=== PATIENT | male | born 1940 | race Caucasian/White ===

== ENCOUNTER 2016-07-21 13:23 | Inpatient (IN) | payer MEDICARE, MEDICAID ==
[~2016-07-21] VITALS: Ht 182.9 cm; Wt 148.5 kg
[~2016-07-21 13:23] MED LIST: ACET325S8 PO; AMLO5TAB22 PO; ASCO500C PO; ASPI325T PO; AZEL0.05 NASAL; DEPA125C PO; FERR324T4 PO; FINA5TAB77 PO; FISH100020 PO; GALA12TA PO; LORA-392 PO; METO25 PO; MULTTAB35 PO; NAME5TAB2 PO; NUED20CA PO; SENN8.6T80 PO; SERO25TA PO; TAMS0.4C67 PO; VITA400D PO; ZYPR2.5T2 PO
[2016-07-21 13:29] VITALS: BP 136/65; PULSE 76; RESP 18; TEMP 98.5; O2SAT 94
[2016-07-21] MEDS ORDERED: VANCOMYCIN INJ 1,000 MG in SODIUM CHLOR 0.9% 250 ML INJ 250 ML IV ONE (13:45)
--- NOTE | 2016-07-21 13:52 | PD ---
HPI Chief Complaint: Skin Problem Time Seen by Provider: 13:31 Travel History International Travel<30 days: No Contact w/Intl Traveler<30days: No Traveled to known affect area: No History of Present Illness HPI This Is a 75-year-old male who comes from the prison with worsening cellulitis of his left lower extremity. The patient was on Rocephin and Bactrim at the prison. According to the nursing report the patient's left lower extremity has become more red and warm to the touch. He reportedly had a ultrasound of the lower extremity at the nursing facility however were trying to obtain records for the results. The patient has a history of dementia and is unable to give history. All of the information is obtained through records from the prison in through the EMS report. PFSH Past Medical History Alzheimer's Disease: Yes Anxiety: Yes Depression: Yes Cardiovascular Problems: Yes (CAD, HTN) Coronary Artery Disease: Yes Dementia: Yes Diminished Hearing: No Hypertension: Yes Triglycerides - High: Yes Past Surgical History Cardiac Surgery: Yes (PACER) Coronary Artery Bypass Graft: Yes Other Surgery: Yes (CARPAL TUNNEL RELEASE) Social History Alcohol Use: No Tobacco Use: No Substance Use: No (UNK) Allergies-Medications (Allergen,Severity, Reaction): Coded Allergies: No Known Allergies (Unverified , 07/31/15) Reported Meds & Prescriptions Reported Meds & Active Scripts Active Reported Seroquel (Quetiapine Fumarate) 50 Mg Tab 50 Mg PO DAILY Seroquel (Quetiapine Fumarate) 100 Mg Tab 100 Mg PO HS Senna S (Sennosides-Docusate Sodium) 8.6-50 Mg Tab 2 Tab PO BID Rivastigmine 3 Mg Cap 3 Mg PO BID Requip (Ropinirole HCl) 0.5 Mg Tab 0.5 Mg PO TID Ditropan (Oxybutynin Chloride) 5 Mg Tab 5 Mg PO DAILY Olanzapine 5 Mg Tab 5 Mg PO HS Nuedexta 20-10 mg (Dextromethorphan HBr-Quinidine) 1 Cap Cap 1 Cap PO Q12HR Normal Saline Flush (Sodium Chloride Flush) 0.9 % Inj 5 Ml IV FLUSH Q8HR Administer q-shift and pre/post abt tx Namenda (Memantine) 10 Mg Tab 10 Mg PO BID Multiple Vitamin/Minerals (Multiple Vitamins W/ Minerals) 1 Tab Tab 1 Tab PO DAILY Metoprolol Tartrate 25 Mg Tab 25 Mg PO BID Flomax (Tamsulosin HCl) 0.4 Mg Cap 0.4 Mg PO HS Fish Oil ([place]-3 Fatty Acids) 500 Mg Cap 1,000 Mg PO DAILY Finasteride 5 Mg Tab 5 Mg PO DAILY Do not crush. Ferrous Sulfate 325 Mg Tab 325 Mg PO BID Depakote Sprinkles (Divalproex Sodium) 125 mg Cap 500 Mg PO HS Depakote Sprinkles (Divalproex Sodium) 125 mg Cap 250 Mg PO BID Vitamin D-400 (Cholecalciferol) 400 Unit Tab 400 Units PO DAILY Ceftriaxone Inj (Ceftriaxone Sodium) 1 Gm Inj 1 Gm IV DAILY Bactrim DS (Sulfamethoxazole-Trimethoprim) 800-160 Mg Tab 1 Tab PO BID Azelastine Nasal [place] (Azelastine HCl) 0.1% [place] 2 [place] EACH NARE BID PRN Ativan (Lorazepam) 1 Mg Tab 1 Mg PO DAILY Ativan (Lorazepam) 0.5 Mg Tab 0.5 Mg PO DAILY IN THE PM Ativan (Lorazepam) 0.5 Mg Tab 0.5 Mg PO Q4H PRN Aspirin 325 Mg Tab 325 Mg PO DAILY Albuterol Neb (Albuterol Sulfate) 2.5 Mg/3 Ml Neb 2.5 Mg NEB Q6HR PRN Tylenol (Acetaminophen) 325 Mg Tab 650 Mg PO Q4H PRN Review of Systems ROS Limitations: Altered Mental Status (history of dementia) Except as stated in HPI: all other systems reviewed are Neg (all information is obtained through records from the prison as well as the EMS crew) General / Constitutional: No: Fever, Chills Cardiovascular: No: Chest Pain or Discomfort, Palpitations Respiratory: Positive: Cough, No: Shortness of Breath Gastrointestinal: No: Nausea, Vomiting, Abdominal Pain Musculoskeletal: Positive: Edema (and redness of the left lower extremity), No : Pain (denies) Physical Exam Narrative GENERAL: Totally gentleman in no acute respiratory distress. SKIN: Focused skin assessment warm/dry. HEAD: Atraumatic. Normocephalic. EYES: Pupils equal and round. No scleral icterus. No injection or drainage. ENT: No nasal bleeding or discharge. Mucous membranes pink and moist. NECK: Trachea midline. No JVD. Supple. CARDIOVASCULAR: Regular rate and rhythm. No murmur appreciated. RESPIRATORY: No accessory muscle use. Clear to auscultation. Breath sounds equal bilaterally. Decreased respiratory effort. GASTROINTESTINAL: Abdomen soft, non-tender, nondistended. Hepatic and splenic margins not palpable. MUSCULOSKELETAL: Bilateral lower extremity edema, left worse than right. There is cellulitis extending from the dorsum of the foot all the way up to the left groin. NEUROLOGICAL: Awake and alert. No obvious cranial nerve deficits. Motor grossly within normal limits. Normal speech. Data Data Last Documented VS Vital Signs Date Time Temp Pulse Resp B/P Pulse Ox O2 Delivery O2 Flow Rate FiO2 07/21/16 15:06 79 18 156/76 94 07/21/16 13:29 98.5 Orders Basic Metabolic Panel (Bmp) (07/21/16 13:33) Complete Blood Count With Diff (07/21/16 13:33) Blood Culture (07/21/16 13:33) Iv Access Insert/Monitor (07/21/16 13:33) Vancomycin Inj (Vancomycin Inj) (07/21/16 13:45) Sodium Chlor 0.9% 1000 Ml Inj (Ns 1000 M (07/21/16 14:45) Chest, Single Ap (07/21/16 15:19) Admit Order (Ed Use Only) (07/21/16 15:29) Labs Laboratory Tests Test 07/21/16 07/21/16 13:45 13:56 Sodium Level 121 MEQ/L Potassium Level 4.5 MEQ/L Chloride Level 85 MEQ/L Carbon Dioxide Level 24.4 MEQ/L Anion Gap 12 MEQ/L Blood Urea Nitrogen 11 MG/DL Creatinine 0.78 MG/DL Estimat Glomerular Filtration 98 ML/MIN Rate Random Glucose 123 MG/DL Calcium Level 8.1 MG/DL White Blood Count 12.7 TH/MM3 Red Blood Count 3.89 MIL/MM3 Hemoglobin 11.5 GM/DL Hematocrit 35.1 % Mean Corpuscular Volume 90.2 FL Mean Corpuscular Hemoglobin 29.6 PG Mean Corpuscular Hemoglobin 32.9 % Concent Red Cell Distribution Width 14.3 % Platelet Count 150 TH/MM3 Mean Platelet Volume 8.0 FL Neutrophils (%) (Auto) 81.9 % Lymphocytes (%) (Auto) 5.9 % Monocytes (%) (Auto) 6.0 % Eosinophils (%) (Auto) 5.6 % Basophils (%) (Auto) 0.6 % Neutrophils # (Auto) 10.4 TH/MM3 Lymphocytes # (Auto) 0.7 TH/MM3 Monocytes # (Auto) 0.8 TH/MM3 Eosinophils # (Auto) 0.7 TH/MM3 Basophils # (Auto) 0.1 TH/MM3 CBC Comment AUTO DIFF Differential Total Cells 100 Counted Neutrophils % (Manual) 51 % Band Neutrophils % 20 % Lymphocytes % 7 % Monocytes % 7 % Eosinophils % 6 % Neutrophils # (Manual) 10.2 TH/MM3 Metamyelocytes 6 % Myelocytes 3 % Differential Comment FINAL DIFF MANUAL Platelet Estimate NORMAL Platelet Morphology Comment NORMAL Red Cell Morphology Comment NORMAL MDM Medical Decision Making Medical Screen Exam Complete: Yes Emergency Medical Condition: Yes Differential Diagnosis Worsening cellulitis with failed outpatient treatment versus DVT versus rash Narrative Course 75-year-old male with a history of dementia, prison resident, who presents here with worsening cellulitis of left lower extremity. The patient had a reported negative ultrasound of the left lower extremity today. The patient is white count 12.7. He is also noted to have a sodium of 121. He is also he failed outpatient treatment. Blood cultures are pending. He's been started on sodium chloride, at 125 cc per hour. He's also been given a dose of 1 g of IVD vancomycin. The case was discussed with Dr. Gamal Chu, nurse transition [facility], who is gracious enough to admit the patient his service. He will be a full admit given his failed outpatient treatment, and hyponatremia. Diagnosis Primary Impression: Left leg cellulitis Additional Impressions: failed outpatient antibiotics Hyponatremia Alzheimer's dementia Admitting Information Admitting Physician Requests: Admit Estiven Schmitz MD July 21, 2016 13:52 Estiven Schmitz MD July 21, 2016 13:52
[2016-07-21 14:08] LABS: AUTOMATED NEUTROPHIL # 10.4 TH/MM3 (1.8-7.7); BASOPHIL # 0.1 TH/MM3 (0-0.2); BASOPHIL % 0.6 % (0.0-2.0); EOSINOPHIL # 0.7 TH/MM3 (0-0.4); EOSINOPHIL % 5.6 % (0.0-4.0); HEMATOCRIT 35.1 % (39.0-51.0); LYMPH % 5.9 % (9.0-44.0); LYMPHOCYTE # 0.7 TH/MM3 (1.0-4.8); MEAN CELL VOLUME 90.2 FL (80.0-100.0); MEAN CORPUSCULAR HEMOGLOBIN 29.6 PG (27.0-34.0); MEAN CORPUSCULAR HGB CONC 32.9 % (32.0-36.0); NEUT % 81.9 % (16.0-70.0); PLATELET COUNT 150 TH/MM3 (150-450); RED BLOOD COUNT 3.89 MIL/MM3 (4.50-5.90); RED CELL DISTRIBUTION WIDTH 14.3 % (11.6-17.2); WHITE BLOOD COUNT 12.7 TH/MM3 (4.0-11.0)
[2016-07-21 14:10] LABS: HEMO FLAGS AUTO DIFF
[2016-07-21] MEDS ORDERED: OLAN5TAB PO (14:26)
[2016-07-21] MEDS ORDERED: NAME10TA PO (14:26)
[2016-07-21] MEDS ORDERED: METO25TA3 PO (14:26)
[2016-07-21] MEDS ORDERED: FISH500C PO (14:26)
[2016-07-21] MEDS ORDERED: SERO50TA PO (14:26)
[2016-07-21] MEDS ORDERED: SENN8.6T8 PO (14:26)
[2016-07-21] MEDS ORDERED: FERR325T PO (14:26)
[2016-07-21] MEDS ORDERED: ALBU0.08 NEB (14:26)
[2016-07-21] MEDS ORDERED: CEFT1INJ5 IV (14:26)
[2016-07-21] MEDS ORDERED: NUED20CA PO (14:26)
[2016-07-21] MEDS ORDERED: DIVA125C PO ×2 (14:26)
[2016-07-21] MEDS ORDERED: BACT800T5 PO (14:26)
[2016-07-21] MEDS ORDERED: OXYB5TAB10 PO (14:26)
[2016-07-21] MEDS ORDERED: TAMS5CAP PO (14:26)
[2016-07-21] MEDS ORDERED: TYLE325T PO (14:26)
[2016-07-21] MEDS ORDERED: 0.92SYRI2 IV FLUSH (14:26)
[2016-07-21] MEDS ORDERED: LORA-392 PO ×2 (14:26)
[2016-07-21] MEDS ORDERED: AZEL1SPR2 EACH NARE (14:26)
[2016-07-21] MEDS ORDERED: ROPI.5 PO (14:26)
[2016-07-21] MEDS ORDERED: SERO100T PO (14:26)
[2016-07-21] MEDS ORDERED: ASPI325T PO (14:26)
[2016-07-21] MEDS ORDERED: MULT1TAB39 PO (14:26)
[2016-07-21] MEDS ORDERED: RIVA3CAP PO (14:26)
[2016-07-21] MEDS ORDERED: LORA-474 PO (14:26)
[2016-07-21] MEDS ORDERED: FINA5TAB2 PO (14:26)
[2016-07-21] MEDS ORDERED: VITATAB56 PO (14:26)
[2016-07-21 14:27] LABS: BICARBONATE 24.4 MEQ/L (21.0-32.0); POTASSIUM 4.5 MEQ/L (3.5-5.1)
[2016-07-21 14:42] LABS: BANDS 20 % (0-6); EOSINOPHILS 6 % (0-4); METAMYELOCYTES 6 % (0-1); MYELOCYTES 3 % (0-0); NEUTROPHIL # MANUAL DIFF 10.2 TH/MM3 (1.8-7.7); POLYS (SEG NEUTROPHILS) 51 % (16-70); WBC DIFF SAMPLE 100
[2016-07-21 14:43] LABS: PLATELET ESTIMATE SMEAR NORMAL (NORMAL); PLATELET MORPHOLOGY NORMAL (NORMAL); SCAN/DIFF FINAL DIFF MANUAL
[2016-07-21] MEDS: SODIUM CHLOR 0.9% 1000 ML INJ 1,000 ML IV SCH (15:05)
[2016-07-21 15:06] VITALS: BP 156/76; PULSE 79; RESP 18; O2SAT 94
[2016-07-21] MEDS ORDERED: Vancomycin Consult Pharmacy 1 EA OTHER SCH ×2 (15:45→16:00)
[2016-07-21] MEDS ORDERED: ONDANSETRON HCL 4 MG/2 ML VIAL IVP PRN (15:45)
[2016-07-21] MEDS ORDERED: ACETAMINOPHEN 325 MG TAB PO PRN (15:45)
[2016-07-21] MEDS ORDERED: NALOXONE HCL 0.4 MG/ML AMP IV PRN (15:45)
[2016-07-21] MEDS ORDERED: MAGNESIUM HYDROXIDE SUSP 30 ML CUP PO PRN (15:45)
--- NOTE | 2016-07-21 16:01 | RADRPT ---
EXAM DATE/TIME: 07/21/2016 15:27 [facility] COMPARISON: No previous studies available for comparison. INDICATIONS : Cough and congestion since Monday. MEDICAL HISTORY : Hypertension. Coronary artery disease. SURGICAL HISTORY : CABG. Pacemaker. ENCOUNTER: Initial ACUITY: 4 - 6 days PAIN SCORE: 0/10 LOCATION: Bilateral chest FINDINGS: A single view of the chest demonstrates the lungs to be symmetrically aerated without evidence of mas s, infiltrate or effusion. The cardiomediastinal contours are unremarkable. Osseous structures are intact. Numerous intact sternal wires. Left subclavian bipolar pacer CONCLUSION: Normal examination. Cody Walter MD on July 21, 2016 at 16:00 Board Certified Radiologist. This report was verified electronically.
[2016-07-21] MEDS: ENOXAPARIN SODIUM 40 MG/0.4 ML SYRINGE SQ SCH (16:25)
[2016-07-21] MEDS: PIPERACIL-TAZO 3.375 GM PREMIX 50 ML IV SCH (16:25)
[2016-07-21] MEDS ORDERED: LORazepam 0.5 MG TAB PO PRN (17:15)
--- NOTE | 2016-07-21 17:22 | HHI.HP ---
[facility] Service [place] [facility] Primary Care Physician Anil Mancilla MD Admission Diagnosis Left lower extremity cellulitis failed outpatient treatment, hyponat Diagnoses: (1) Left leg cellulitis Diagnosis: Principal (2) Alzheimer's dementia (3) Hyponatremia (4) Coronary artery disease (5) Hypertension (6) Anxiety and depression Chief Complaint: Cellulitis Travel History International Travel<30 Days: No Contact w/Intl Traveler <30 Da: No Traveled to Known Affected Are: No History of Present Illness Vanesa is a 75-year-old male who was sent to the emergency department from the long-term facility for evaluation of worsening left lower extremity cellulitis over the past few days. He had been placed on Rocephin and Bactrim at the SNF, but there have been no improvement. He has a small wound on the anterior left lower leg with no bleeding or drainage. He has had increasing erythema and swelling of the left leg over the past 5 days. He has dementia and is unable to provide significant history. Further information is gathered from review of electronic medical record, review of the SNF paperwork, discussion with ER physician, and discussion with family at bedside. Review of Systems Constitutional: DENIES: Fever, Chills, Night Sweats Eyes: DENIES: Blurred vision, Vision loss Ears, nose, mouth, throat: DENIES: Hearing loss Respiratory: COMPLAINS OF: Cough, DENIES: Wheezing, Sputum production, Shortness of breath Cardiovascular: DENIES: Chest pain, Palpitations, Dyspnea on Exertion, Lower Extremity Edema Gastrointestinal: DENIES: Abdominal pain, Constipation, Diarrhea, Nausea, Vomiting Genitourinary: DENIES: Urinary frequency, Urinary incontinence, Urgency, Hematuria, Dysuria, Nocturia Musculoskeletal: DENIES: Joint pain, Muscle aches Integumentary: COMPLAINS OF: Rash, DENIES: Pruritus Hematologic/lymphatic: DENIES: Bruising Neurologic: DENIES: Headache Past Family Social History Past Medical History Coronary artery disease Hypertension Dementia Anxiety/depression Lipidemia Past Surgical History Pacemaker placement CABG Carpal tunnel release Reported Medications Seroquel (Quetiapine Fumarate) 50 Mg Tab 50 Mg PO DAILY Seroquel (Quetiapine Fumarate) 100 Mg Tab 100 Mg PO HS Senna S (Sennosides-Docusate Sodium) 8.6-50 Mg Tab 2 Tab PO BID Rivastigmine 3 Mg Cap 3 Mg PO BID Requip (Ropinirole HCl) 0.5 Mg Tab 0.5 Mg PO TID Ditropan (Oxybutynin Chloride) 5 Mg Tab 5 Mg PO DAILY Olanzapine 5 Mg Tab 5 Mg PO HS Nuedexta 20-10 mg (Dextromethorphan HBr-Quinidine) 1 Cap Cap 1 Cap PO Q12HR Normal Saline Flush (Sodium Chloride Flush) 0.9 % Inj 5 Ml IV FLUSH Q8HR Administer q-shift and pre/post abt tx Namenda (Memantine) 10 Mg Tab 10 Mg PO BID Multiple Vitamin/Minerals (Multiple Vitamins W/ Minerals) 1 Tab Tab 1 Tab PO DAILY Metoprolol Tartrate 25 Mg Tab 25 Mg PO BID Flomax (Tamsulosin HCl) 0.4 Mg Cap 0.4 Mg PO HS Fish Oil ([place]-3 Fatty Acids) 500 Mg Cap 1,000 Mg PO DAILY Finasteride 5 Mg Tab 5 Mg PO DAILY Do not crush. Ferrous Sulfate 325 Mg Tab 325 Mg PO BID Depakote Sprinkles (Divalproex Sodium) 125 mg Cap 500 Mg PO HS Depakote Sprinkles (Divalproex Sodium) 125 mg Cap 250 Mg PO BID Vitamin D-400 (Cholecalciferol) 400 Unit Tab 400 Units PO DAILY Ceftriaxone Inj (Ceftriaxone Sodium) 1 Gm Inj 1 Gm IV DAILY Bactrim DS (Sulfamethoxazole-Trimethoprim) 800-160 Mg Tab 1 Tab PO BID Azelastine Nasal [place] (Azelastine HCl) 0.1% [place] 2 [place] EACH NARE BID PRN Ativan (Lorazepam) 1 Mg Tab 1 Mg PO DAILY Ativan (Lorazepam) 0.5 Mg Tab 0.5 Mg PO DAILY IN THE PM Ativan (Lorazepam) 0.5 Mg Tab 0.5 Mg PO Q4H PRN Aspirin 325 Mg Tab 325 Mg PO DAILY Albuterol Neb (Albuterol Sulfate) 2.5 Mg/3 Ml Neb 2.5 Mg NEB Q6HR PRN Tylenol (Acetaminophen) 325 Mg Tab 650 Mg PO Q4H PRN Allergies: Coded Allergies: No Known Allergies (Unverified , 07/31/15) Family History Denies Social History Denies alcohol or tobacco abuse. Physical Exam Vital Signs Vital Signs Date Time Temp Pulse Resp B/P Pulse Ox O2 Delivery O2 Flow Rate FiO2 07/21/16 15:06 79 18 156/76 94 07/21/16 13:29 98.5 76 18 136/65 94 Physical Exam GENERAL: Elderly male] in no acute distress. HEENT: Normocephalic, atraumatic. Pupils equal, round and reactive. Extraocular movements intact. No scleral icterus. No injection or drainage. Oropharynx is clear. Mucous membranes are moist. CARDIOVASCULAR: Regular rate and rhythm without murmurs, gallops, or rubs. RESPIRATORY: Clear to auscultation. No wheezes, rales, or rhonchi. Breathing is non-labored. GASTROINTESTINAL: Abdomen soft, non-tender, nondistended. EXTREMITIES: 2+ left lower extremity edema. No calf tenderness. There is significant erythema involving the entire left lower leg extending up to the groin medially and laterally. There is sparing of the skin overlying the knee and the distal thigh. There is a 1 cm scabbed lesion on the anterior lower left leg. There is no evidence of drainage or bleeding. PSYCH: Alert, confused. Laboratory Laboratory Tests Test 07/21/16 07/21/16 13:45 13:56 Sodium Level 121 Potassium Level 4.5 Chloride Level 85 Carbon Dioxide Level 24.4 Anion Gap 12 Blood Urea Nitrogen 11 Creatinine 0.78 Estimat Glomerular Filtration 98 Rate Random Glucose 123 Calcium Level 8.1 White Blood Count 12.7 Red Blood Count 3.89 Hemoglobin 11.5 Hematocrit 35.1 Mean Corpuscular Volume 90.2 Mean Corpuscular Hemoglobin 29.6 Mean Corpuscular Hemoglobin 32.9 Concent Red Cell Distribution Width 14.3 Platelet Count 150 Mean Platelet Volume 8.0 Neutrophils (%) (Auto) 81.9 Lymphocytes (%) (Auto) 5.9 Monocytes (%) (Auto) 6.0 Eosinophils (%) (Auto) 5.6 Basophils (%) (Auto) 0.6 Neutrophils # (Auto) 10.4 Lymphocytes # (Auto) 0.7 Monocytes # (Auto) 0.8 Eosinophils # (Auto) 0.7 Basophils # (Auto) 0.1 CBC Comment AUTO DIFF Differential Total Cells 100 Counted Neutrophils % (Manual) 51 Band Neutrophils % 20 Lymphocytes % 7 Monocytes % 7 Eosinophils % 6 Neutrophils # (Manual) 10.2 Metamyelocytes 6 Myelocytes 3 Differential Comment FINAL DIFF MANUAL Platelet Estimate NORMAL Platelet Morphology Comment NORMAL Red Cell Morphology Comment NORMAL Date/Time Procedure Status Source Growth 07/21/16 13:50 Aerobic Blood Culture Received Blood Peripheral Pending 07/21/16 13:50 Anaerobic Blood Culture Received Blood Peripheral Pending Result Diagram: 07/21/16 1356 07/21/16 1345 Imaging Last Impressions Chest X-Ray 07/21/16 1519 Signed Impressions: Service Date/Time: July 15:27 - CONCLUSION: Normal examination. Cody Walter MD Assessment and Plan Assessment and Plan 1. Cellulitis, left lower extremity: Failed outpatient therapy. Patient had been treated with Rocephin and Bactrim at the SNF area and he has had worsening of the cellulitis in the past few days despite antibiotics. Start vancomycin and Zosyn. There is no drainage available for culture. Check ultrasound of the left lower extremity due to the amount of swelling. 2. Also has dementia: Continue home medications. Patient is confused. 3. Hypertension: Monitor blood pressure. 4. Coronary artery disease: Currently asymptomatic. 5. Hyponatremia: Continue IV fluids. Monitor labs. 6. DVT prophylaxis: Lovenox. Code Status DO NOT RESUSCITATE Gamal Chu MD July 21, 2016 17:22
[2016-07-21] MEDS: LORazepam 0.5 MG TAB PO SCH (17:59)
[2016-07-21 18:00] VITALS: BP 190/89; PULSE 89; RESP 22; O2SAT 97
[2016-07-21] MEDS ORDERED: SODIUM CHLORIDE 0.9% FLUSH 10 ML FLUSH IV FLUSH PRN (18:00)
--- NOTE | 2016-07-21 18:32 | RADRPT ---
EXAM DATE/TIME: 07/21/2016 18:06 [facility] COMPARISON: No previous studies available for comparison. INDICATIONS : Left leg swelling. MEDICAL HISTORY : Dementia. Alzheimer's. CAD. HTN. Hyperlipidemia. Depression. Anxiety. Anticoagulant therapy, Aspi rin 325mg. SURGICAL HISTORY : Pacemaker. CABG Carpel tunnel release. ENCOUNTER: Initial ACUITY: 4 - 6 days PAIN SCORE: 0/10 LOCATION: Left leg. TECHNIQUE: Venous ultrasound of the leg was performed from the inguinal ligament to the proximal calf. Real-valencia e, color Doppler and spectral tracing, compression and augmentation techniques were used. FINDINGS: There is normal compressibility of the deep venous system from the inguinal region to the proximal ca lf. No echogenic clot is seen in the lumen of the common femoral, femoral, popliteal, and posterior tibial veins. There is a normal response of the venous system to proximal and distal augmentation an d respiration. Minimal inguinal adenopathy is evident. CONCLUSION: Negative of DVT. Ganesh Dale MD FACR on July 21, 2016 at 18:31 Board Certified Radiologist. This report was verified electronically.
[2016-07-21 19:30] VITALS: BP 143/71; PULSE 108; RESP 20; TEMP 95; O2SAT 95
[2016-07-21] MEDS ORDERED: NUEDEXTA PO SCH (21:00)
[2016-07-21] MEDS: TAMSULOSIN HCL 0.4 MG CAP PO SCH (22:07)
[2016-07-21] MEDS: MEMANTINE HCL 10 MG TAB PO SCH (22:07)
[2016-07-21] MEDS: FERROUS SULFATE 325 MG (65 MG ELEMENTAL IRON) TAB PO SCH (22:07)
[2016-07-21] MEDS: DOCUSATE SODIUM 50 MG/SENNA 8.6 MG TAB PO SCH (22:08)
[2016-07-21] MEDS: METOPROLOL TARTRATE 25 MG TAB PO SCH (22:08)
[2016-07-21] MEDS: QUEtiapine FUMARATE 100 MG TAB PO SCH (22:08)
[2016-07-21] MEDS: VANCOMYCIN INJ 1,500 MG in SODIUM CHLORID 0.9% 500 ML INJ 500 ML IV SCH (22:09)
[2016-07-21] MEDS: DIVALPROEX SODIUM SPRINKLES 125 MG CAP PO SCH ×2 (22:10)
[2016-07-21] MEDS: RIVASTIGMINE TARTRATE 3 MG PO SCH (22:18)
[2016-07-21] MEDS: RESP: ALBUTEROL 2.5 MG/IPRATROPIUM 0.5 MG NEB (PRN) NEB (22:41)
[2016-07-21] MEDS: OLANZapine 5 MG TAB PO SCH (22:58)
[2016-07-22] VITALS (12 sets, daily range): BP systolic 133–154; BP diastolic 63–86; PULSE 84–114; RESP 17–20; TEMP 97–99.4; O2SAT 93–99
[2016-07-22] MEDS: SODIUM CHLOR 0.9% 1000 ML INJ 1,000 ML IV SCH ×2 (00:45→21:23)
--- NOTE | 2016-07-22 01:33 | RADRPT ---
EXAM DATE/TIME: 07/22/2016 01:10 [facility] COMPARISON: No previous studies available for comparison. INDICATIONS : Congestion. MEDICAL HISTORY : Hypertension. Coronary artery disease. SURGICAL HISTORY : CABG. Pacemaker. ENCOUNTER: Subsequent ACUITY: 2 days PAIN SCORE: Non-responsive. LOCATION: chest FINDINGS: Pacer leads overlying right atrium and right ventricle. Median sternotomy. Minimal basilar atelectasi s. CONCLUSION: 1. Minimal basilar atelectasis. No consolidation or effusion. Mild scoliosis. Artemio Ordonez MD on July 22, 2016 at 1:30 Board Certified Radiologist. This report was verified electronically.
[2016-07-22 03:38] LABS: BASOPHIL % 0.3 % (0.0-2.0); EOSINOPHIL # 0.8 TH/MM3 (0-0.4); EOSINOPHIL % 5.4 % (0.0-4.0); HEMATOCRIT 35.5 % (39.0-51.0); LYMPH % 5.4 % (9.0-44.0); LYMPHOCYTE # 0.8 TH/MM3 (1.0-4.8); MEAN CELL VOLUME 89.4 FL (80.0-100.0); MEAN CORPUSCULAR HEMOGLOBIN 30.2 PG (27.0-34.0); MEAN CORPUSCULAR HGB CONC 33.7 % (32.0-36.0); MONO % 4.7 % (0.0-8.0); NEUT % 84.2 % (16.0-70.0); PLATELET COUNT 171 TH/MM3 (150-450); RED BLOOD COUNT 3.97 MIL/MM3 (4.50-5.90); RED CELL DISTRIBUTION WIDTH 14.2 % (11.6-17.2); WHITE BLOOD COUNT 14.2 TH/MM3 (4.0-11.0)
[2016-07-22 03:39] LABS: HEMO FLAGS AUTO DIFF
[2016-07-22 03:52] LABS: ALT (GPT) 25 U/L (12-78); ANION GAP 9 MEQ/L (5-15); AST (GOT) 28 U/L (15-37); BICARBONATE 27.1 MEQ/L (21.0-32.0); BLOOD UREA NITROGEN 10 MG/DL (7-18); CHLORIDE 89 MEQ/L (98-107); GLOMERULAR FILTRATION RATE 95 ML/MIN (>89); POTASSIUM 4.7 MEQ/L (3.5-5.1); SODIUM (NA) 125 MEQ/L (136-145)
[2016-07-22 03:55] LABS: ALKALINE PHOSPHATASE 88 U/L (45-117); TOTAL BILIRUBIN ADULT 0.4 MG/DL (0.2-1.0)
[2016-07-22] MEDS: RESP: ALBUTEROL 2.5 MG/IPRATROPIUM 0.5 MG NEB (SCH) NEB ×4 (04:13→22:10)
[2016-07-22 04:29] LABS: BANDS 15 % (0-6); EOSINOPHILS 3 % (0-4); METAMYELOCYTES 9 % (0-1); NEUTROPHIL # MANUAL DIFF 12.2 TH/MM3 (1.8-7.7); POLYS (SEG NEUTROPHILS) 62 % (16-70); WBC DIFF SAMPLE 100
[2016-07-22 04:30] LABS: PLATELET ESTIMATE SMEAR NORMAL (NORMAL); PLATELET MORPHOLOGY NORMAL (NORMAL); SCAN/DIFF FINAL DIFF MANUAL
[2016-07-22] MEDS: RIVASTIGMINE TARTRATE 3 MG PO SCH ×2 (08:50→21:28)
[2016-07-22] MEDS: ASPIRIN 325 MG TAB PO SCH (08:51)
[2016-07-22] MEDS: DOCUSATE SODIUM 50 MG/SENNA 8.6 MG TAB PO SCH ×2 (08:51→21:28)
[2016-07-22] MEDS: METOPROLOL TARTRATE 25 MG TAB PO SCH ×2 (08:51→21:28)
[2016-07-22] MEDS: FERROUS SULFATE 325 MG (65 MG ELEMENTAL IRON) TAB PO SCH ×2 (08:51→21:00)
[2016-07-22] MEDS: PIPERACIL-TAZO 3.375 GM PREMIX 50 ML IV SCH ×3 (08:51→15:51)
[2016-07-22] MEDS: OXYBUTYNIN CHLORIDE 5 MG TAB PO SCH (08:52)
[2016-07-22] MEDS: MULTIVITAMINS/MINERALS THERAPEUTIC TAB PO SCH (08:52)
[2016-07-22] MEDS: LORazepam 1 MG TAB PO SCH (08:52)
[2016-07-22] MEDS: QUEtiapine FUMARATE 25 MG TAB PO SCH (08:52)
[2016-07-22] MEDS: DIVALPROEX SODIUM SPRINKLES 125 MG CAP PO SCH ×3 (08:52→21:36)
[2016-07-22] MEDS: MEMANTINE HCL 10 MG TAB PO SCH ×2 (08:52→21:29)
[2016-07-22] MEDS: FINASTERIDE 5 MG TAB PO SCH (08:52)
[2016-07-22] MEDS ORDERED: NON-FORMULARY DRUG (Omega-3 Fatty Acids (Fish Oil) 1,000 MG) PO SCH (09:00)
[2016-07-22] MEDS: VANCOMYCIN INJ 1,500 MG in SODIUM CHLORID 0.9% 500 ML INJ 500 ML IV SCH ×2 (10:17→21:29)
[2016-07-22] MEDS: CHOLECALCIFEROL (VIT D3) 400 UNIT TAB PO SCH (10:17)
--- NOTE | 2016-07-22 10:45 | HHI.PR ---
Subjective Remarks Follow-up cellulitis, dementia. The patient has been doing well this morning according to his family at bedside. Has been eating a small amount of breakfast. Denies chest pain, dyspnea. Objective Vitals Vital Signs Date Time Temp Pulse Resp B/P Pulse Ox O2 Delivery O2 Flow Rate FiO2 07/22/16 09:48 84 07/22/16 09:44 93 21 07/22/16 08:00 97.3 97 18 133/65 94 07/22/16 04:20 92 07/22/16 04:14 94 21 07/22/16 04:00 97.3 90 18 141/73 96 07/22/16 00:00 97.0 114 18 139/86 98 07/21/16 19:30 95.0 108 20 143/71 95 07/21/16 18:00 89 22 190/89 97 07/21/16 15:06 79 18 156/76 94 07/21/16 13:29 98.5 76 18 136/65 94 I/O 07/21/16 07/21/16 07/21/16 07/22/16 07/22/16 07/22/16 07:00 15:00 23:00 07:00 15:00 23:00 Output Total 4000 ml Balance -4000 ml Output Urine Total 4000 ml # Bowel Movements 3 Result Diagram: 07/22/16 0323 07/22/16 0323 Imaging Last Impressions Chest X-Ray 07/22/16 0000 Signed Impressions: Service Date/Time: Friday, July 22, 2016 01:10 - CONCLUSION: 1. Minimal basilar atelectasis. No consolidation or effusion. Mild scoliosis. Artemio Ordonez MD Lower Extremity Ultrasound 07/21/16 0000 Signed Impressions: Service Date/Time: July 18:06 - CONCLUSION: Negative of DVT. Ganesh Dale MD FACR Objective Remarks General: Elderly male in no acute distress. Heart: Regular rate and rhythm. No murmur. Lungs: Clear to auscultation bilaterally. No wheezes, rales, or rhonchi. Breathing is nonlabored. Abdomen: Soft, nontender, nondistended. Extremities: Left lower extremity with significant edema, induration, and erythema extending from the mid foot to the upper thigh/groin. There is slightly less swelling than yesterday. No areas of fluctuance are noted. Psych: Alert, confused. Procedures None Urinary Catheter: Yes Assessment to: Continue [place] insert reason: Obstruction/Retention Vascular Central Line Catheter: No A/P Problem List: (1) Left leg cellulitis ICD Code: L03.116 Status: Acute (2) Alzheimer's dementia ICD Code: G30.9 Status: Acute (3) Hyponatremia ICD Code: E87.1 Status: Acute (4) Coronary artery disease ICD Code: I25.10 Status: Acute (5) Hypertension ICD Code: I10 Status: Acute (6) Anxiety and depression ICD Code: F41.9 Status: Acute Assessment and Plan 1. Cellulitis, left lower extremity: Failed outpatient therapy. Patient had been treated with Rocephin and Bactrim at the SNF area and he has had worsening of the cellulitis in the past few days despite antibiotics. Continue vancomycin and Zosyn. There is no drainage available for culture. Ultrasound shows no evidence of DVT. Slight improvement in swelling today. Still with significant erythema and induration. 2. Dementia: Continue home medications. Patient is confused. 3. Hypertension: Monitor blood pressure. 4. Coronary artery disease: Currently asymptomatic. 5. Hyponatremia: Continue IV fluids. Monitor labs. 6. DVT prophylaxis: Lovenox. 7. CODE STATUS: DO NOT RESUSCITATE. Gamal Chu MD July 22, 2016 10:45
[2016-07-22] MEDS: RESP: ALBUTEROL 2.5 MG/IPRATROPIUM 0.5 MG NEB (PRN) NEB (13:08)
[2016-07-22] MEDS: ENOXAPARIN SODIUM 40 MG/0.4 ML SYRINGE SQ SCH (15:51)
[2016-07-22] MEDS: LORazepam 0.5 MG TAB PO SCH ×2 (17:39→21:28)
[2016-07-22] MEDS: TAMSULOSIN HCL 0.4 MG CAP PO SCH (21:27)
[2016-07-22] MEDS: QUEtiapine FUMARATE 100 MG TAB PO SCH (21:28)
[2016-07-22] MEDS: OLANZapine 5 MG TAB PO SCH (21:28)
[2016-07-23] VITALS (9 sets, daily range): BP systolic 116–150; BP diastolic 57–87; PULSE 79–107; RESP 18–22; TEMP 97–99; O2SAT 93–99
[2016-07-23] MEDS: PIPERACIL-TAZO 3.375 GM PREMIX 50 ML IV SCH ×4 (00:18→23:41)
[2016-07-23] MEDS: RESP: ALBUTEROL 2.5 MG/IPRATROPIUM 0.5 MG NEB (SCH) NEB ×4 (03:25→21:59)
[2016-07-23] MEDS: SODIUM CHLOR 0.9% 1000 ML INJ 1,000 ML IV SCH (05:58)
[2016-07-23] MEDS: QUEtiapine FUMARATE 25 MG TAB PO SCH (08:31)
[2016-07-23] MEDS: OXYBUTYNIN CHLORIDE 5 MG TAB PO SCH (08:31)
[2016-07-23] MEDS: RIVASTIGMINE TARTRATE 3 MG PO SCH ×2 (08:31→20:48)
[2016-07-23] MEDS: FINASTERIDE 5 MG TAB PO SCH (08:31)
[2016-07-23] MEDS: LORazepam 1 MG TAB PO SCH (08:31)
[2016-07-23] MEDS: DOCUSATE SODIUM 50 MG/SENNA 8.6 MG TAB PO SCH ×2 (08:31→20:48)
[2016-07-23] MEDS: MEMANTINE HCL 10 MG TAB PO SCH ×2 (08:31→20:48)
[2016-07-23] MEDS: DIVALPROEX SODIUM SPRINKLES 125 MG CAP PO SCH ×3 (08:32→20:48)
[2016-07-23] MEDS: METOPROLOL TARTRATE 25 MG TAB PO SCH ×2 (08:32→20:48)
[2016-07-23] MEDS: FERROUS SULFATE 325 MG (65 MG ELEMENTAL IRON) TAB PO SCH ×2 (08:32→20:48)
[2016-07-23] MEDS: CHOLECALCIFEROL (VIT D3) 400 UNIT TAB PO SCH (08:32)
[2016-07-23] MEDS: MULTIVITAMINS/MINERALS THERAPEUTIC TAB PO SCH (08:32)
[2016-07-23] MEDS: ASPIRIN 325 MG TAB PO SCH (08:32)
--- NOTE | 2016-07-23 09:38 | RADRPT ---
EXAM DATE/TIME: 07/23/2016 09:11 [facility] COMPARISON: CHEST SINGLE AP, July 22, 2016, 1:10. INDICATIONS : Shortness of breath and cough. MEDICAL HISTORY : Hypertension. Coronary artery disease. SURGICAL HISTORY : CABG. Pacemaker. ENCOUNTER: Subsequent ACUITY: 3 days PAIN SCORE: Non-responsive. LOCATION: chest FINDINGS: Cardiac pacemaker and median sternotomy wires again seen. Minimal subsegmental atelectasis at the lef t lung base. The lungs are otherwise clear. Cardiomediastinal silhouette within normal limits. No jose dence of pleural effusion or pneumothorax. CONCLUSION: No acute cardiopulmonary disease identified. Benjy Arredondo MD on July 23, 2016 at 9:36 Board Certified Radiologist. This report was verified electronically.
[2016-07-23] MEDS ORDERED: PHARMACY ORDERED LAB ONE (09:45)
--- NOTE | 2016-07-23 09:54 | HHI.PR ---
Subjective Remarks I was called by the nurse regarding worsening respiratory distress. Patient was short of breath and felt that he could not clear mucous. Nurse did suctioning and the patient vomited dark material. No apparent blood. Upon my arrival to the room, the patient states that he is not short of breath. He denies chest pain. He is completing a nebulizer treatment. Objective Vitals Vital Signs Date Time Temp Pulse Resp B/P Pulse Ox O2 Delivery O2 Flow Rate FiO2 07/23/16 09:03 93 Nasal Cannula 2.00 07/23/16 08:40 Room Air 07/23/16 08:00 97.3 99 20 130/66 94 07/23/16 04:00 97.0 107 22 150/82 99 07/23/16 03:34 97 Aerosol Mask 07/23/16 00:00 97.2 80 20 135/74 98 07/22/16 22:12 98 Nasal Cannula 21 07/22/16 20:00 98.0 97 20 140/63 96 07/22/16 19:48 107 07/22/16 16:00 99.4 95 18 142/69 99 07/22/16 12:00 97.8 94 17 154/78 94 I/O 07/22/16 07/22/16 07/22/16 07/23/16 07/23/16 07/23/16 07:00 15:00 23:00 07:00 15:00 23:00 Intake Total 280 ml 2618 ml Output Total 4000 ml 850 ml 800 ml Balance -4000 ml 280 ml 1768 ml -800 ml Intake Oral 280 ml IV Total 2618 ml Output Urine Total 4000 ml 850 ml 800 ml # Bowel Movements 3 Result Diagram: 07/22/16 0323 07/22/16 0323 Imaging Last Impressions Chest X-Ray 07/23/16 0000 Signed Impressions: Service Date/Time: Saturday, July 23, 2016 09:11 - CONCLUSION: No acute cardiopulmonary disease identified. Benjy Arredondo MD Lower Extremity Ultrasound 07/21/16 0000 Signed Impressions: Service Date/Time: July 18:06 - CONCLUSION: Negative of DVT. Ganesh Dale MD FACR Objective Remarks General: Elderly male in no acute distress. Heart: Regular rate and rhythm. No murmur. Lungs: Clear to auscultation bilaterally. No wheezes, rales, or rhonchi. Breathing is nonlabored. Abdomen: Soft, nontender, nondistended. Extremities: Left lower extremity with edema, induration, and erythema extending from the mid foot to the upper thigh/groin. Improved compared to yesterday. No areas of fluctuance are noted. Psych: Alert, confused. Procedures None Urinary Catheter: Yes Assessment to: Continue Albright insert reason: Obstruction/Retention Vascular Central Line Catheter: No A/P Problem List: (1) Left leg cellulitis ICD Code: L03.116 Status: Acute (2) Alzheimer's dementia ICD Code: G30.9 Status: Acute (3) Hyponatremia ICD Code: E87.1 Status: Acute (4) Coronary artery disease ICD Code: I25.10 Status: Acute (5) Hypertension ICD Code: I10 Status: Acute (6) Anxiety and depression ICD Code: F41.9 Status: Acute (7) Dyspnea ICD Code: R06.00 Status: Acute Assessment and Plan 1. Cellulitis, left lower extremity: Failed outpatient therapy. Patient had been treated with Rocephin and Bactrim at the SNF area and he has had worsening of the cellulitis in the past few days despite antibiotics. Continue vancomycin and Zosyn. There is no drainage available for culture. Ultrasound shows no evidence of DVT. Improving. 2. Dementia: Continue home medications. Patient is confused. 3. Hypertension: Monitor blood pressure. 4. Coronary artery disease: Currently asymptomatic. 5. Hyponatremia: Continue IV fluids. Monitor labs. 6. DVT prophylaxis: Lovenox. 7. Dyspnea: CXR is negative. Concern for possible aspiration. Continue bronchodilators, antibiotics. 8. CODE STATUS: DO NOT RESUSCITATE. Gamal Chu MD July 23, 2016 09:54
[2016-07-23 10:18] LABS: BASOPHIL # 0.1 TH/MM3 (0-0.2); BASOPHIL % 0.4 % (0.0-2.0); EOSINOPHIL # 0.3 TH/MM3 (0-0.4); EOSINOPHIL % 1.3 % (0.0-4.0); HEMATOCRIT 37.7 % (39.0-51.0); HEMO FLAGS DIFF FINAL; LYMPH % 4.8 % (9.0-44.0); LYMPHOCYTE # 0.9 TH/MM3 (1.0-4.8); MEAN CORPUSCULAR HEMOGLOBIN 29.7 PG (27.0-34.0); MEAN CORPUSCULAR HGB CONC 32.6 % (32.0-36.0); MONO % 4.3 % (0.0-8.0); NEUT % 89.2 % (16.0-70.0); PLATELET COUNT 269 TH/MM3 (150-450); RED BLOOD COUNT 4.14 MIL/MM3 (4.50-5.90); RED CELL DISTRIBUTION WIDTH 14.5 % (11.6-17.2); WHITE BLOOD COUNT 19.1 TH/MM3 (4.0-11.0)
[2016-07-23 10:36] LABS: BICARBONATE 21.1 MEQ/L (21.0-32.0)
[2016-07-23] MEDS: VANCOMYCIN INJ 1,500 MG in SODIUM CHLORID 0.9% 500 ML INJ 500 ML IV SCH ×2 (11:19→21:48)
[2016-07-23] MEDS ORDERED: SODIUM CHLOR 0.9% 1000 ML INJ 1,000 ML IV SCH (13:15)
[2016-07-23] MEDS: ENOXAPARIN SODIUM 40 MG/0.4 ML SYRINGE SQ SCH (15:12)
[2016-07-23 17:23] LABS: BLOOD GAS BASE EXCESS -1.3 mmol/L (-2-2); BLOOD GAS CARBOXYHEMOGLOBIN 1.2 % (0-4); BLOOD GAS HCO3 22 mmol/L (22-26); BLOOD GAS METHEMOGLOBIN 0.8 % (0-2); BLOOD GAS O2 HGB SATURATION 96 % (90-100); BLOOD GAS OXYGEN CONTENT 15.3 Vol % (12.0-20.0); BLOOD GAS PCO2 33 mmHg (38-42); BLOOD GAS PO2 100 mmHg (61-120); BLOOD GAS TOTAL HGB 11.3 G/DL (12.0-16.0); CRITICAL VALUE NO; OXYGEN DEVICE NASAL CANNULA; TEMP CORR TO 98.6
[2016-07-23 17:24] LABS: DRAW SITE RT RADIAL; LITER FLOW 2 L/M; NUMBER OF ARTERIAL PUNCTURES 1; STAT YES; ULNAR PULSE PRESENT
[2016-07-23 17:52] LABS: BLOOD, URINE MOD (NEG); GLUCOSE,URINE NEG (NEG); KETONE, URINE 10 mg/dL (NEG); NITRITE,URINE NEG (NEG); SQUAMOUS EPITHELIAL CELL URINE <1 /hpf (0-5); URINE COLOR YELLOW (YELLW/STRAW)
[2016-07-23 17:53] LABS: COMMENT (UR) CULTURE INDICATED; CULTURE IF INDICATED CULTURE INDICATED
[2016-07-23] MEDS: TAMSULOSIN HCL 0.4 MG CAP PO SCH (20:48)
[2016-07-23] MEDS: QUEtiapine FUMARATE 100 MG TAB PO SCH (20:48)
[2016-07-23] MEDS: OLANZapine 5 MG TAB PO SCH (20:49)
[2016-07-24] VITALS (7 sets, daily range): BP systolic 102–143; BP diastolic 53–76; PULSE 76–98; RESP 18–20; TEMP 96.6–97.7; O2SAT 95–100
[2016-07-24] MEDS: RESP: ALBUTEROL 2.5 MG/IPRATROPIUM 0.5 MG NEB (SCH) NEB ×4 (04:35→22:23)
[2016-07-24] MEDS: PIPERACIL-TAZO 3.375 GM PREMIX 50 ML IV SCH (08:00)
[2016-07-24 08:12] LABS: AUTOMATED NEUTROPHIL # 14.8 TH/MM3 (1.8-7.7); BASOPHIL % 0.3 % (0.0-2.0); EOSINOPHIL # 0.5 TH/MM3 (0-0.4); LYMPH % 7.4 % (9.0-44.0); LYMPHOCYTE # 1.3 TH/MM3 (1.0-4.8); MEAN CELL VOLUME 89.8 FL (80.0-100.0); MEAN CORPUSCULAR HEMOGLOBIN 30.2 PG (27.0-34.0); MEAN CORPUSCULAR HGB CONC 33.6 % (32.0-36.0); MONO % 4.8 % (0.0-8.0); NEUT % 84.5 % (16.0-70.0); PLATELET COUNT 203 TH/MM3 (150-450); RED BLOOD COUNT 3.23 MIL/MM3 (4.50-5.90); RED CELL DISTRIBUTION WIDTH 14.4 % (11.6-17.2); WHITE BLOOD COUNT 17.5 TH/MM3 (4.0-11.0)
[2016-07-24 08:32] LABS: BICARBONATE 23.1 MEQ/L (21.0-32.0); HEMO FLAGS AUTO DIFF; POTASSIUM 4.3 MEQ/L (3.5-5.1)
[2016-07-24] MEDS: CHOLECALCIFEROL (VIT D3) 400 UNIT TAB PO SCH (09:00)
[2016-07-24] MEDS: DIVALPROEX SODIUM SPRINKLES 125 MG CAP PO SCH ×3 (09:00→21:26)
[2016-07-24] MEDS: MEMANTINE HCL 10 MG TAB PO SCH ×2 (09:00→21:26)
[2016-07-24] MEDS: FINASTERIDE 5 MG TAB PO SCH (09:00)
[2016-07-24] MEDS: RIVASTIGMINE TARTRATE 3 MG PO SCH ×2 (09:00→21:27)
[2016-07-24] MEDS: ASPIRIN 325 MG TAB PO SCH (09:00)
[2016-07-24] MEDS: FERROUS SULFATE 325 MG (65 MG ELEMENTAL IRON) TAB PO SCH ×2 (09:00→21:26)
[2016-07-24] MEDS: METOPROLOL TARTRATE 25 MG TAB PO SCH ×2 (09:00→21:26)
[2016-07-24] MEDS: MULTIVITAMINS/MINERALS THERAPEUTIC TAB PO SCH (09:00)
[2016-07-24] MEDS: OXYBUTYNIN CHLORIDE 5 MG TAB PO SCH (09:00)
[2016-07-24] MEDS: QUEtiapine FUMARATE 25 MG TAB PO SCH (09:00)
[2016-07-24] MEDS: LORazepam 1 MG TAB PO SCH (09:00)
[2016-07-24] MEDS: DOCUSATE SODIUM 50 MG/SENNA 8.6 MG TAB PO SCH ×2 (09:00→21:27)
[2016-07-24 10:51] LABS: BANDS 21 % (0-6); BASOPHILS 1 % (0-2); EOSINOPHILS 3 % (0-4); MYELOCYTES 1 % (0-0); NEUTROPHIL # MANUAL DIFF 13.8 TH/MM3 (1.8-7.7); POLYS (SEG NEUTROPHILS) 57 % (16-70); WBC DIFF SAMPLE 100
[2016-07-24 10:52] LABS: PLATELET ESTIMATE SMEAR NORMAL (NORMAL); PLATELET MORPHOLOGY NORMAL (NORMAL); SCAN/DIFF FINAL DIFF MANUAL
--- NOTE | 2016-07-24 11:36 | HHI.PR ---
Subjective Remarks Follow-up sepsis, cellulitis. Patient is feeling better today. Still having difficulty clearing phlegm. Feels that his asthma is bothering him. No chest pain. No more vomiting. Objective Vitals Vital Signs Date Time Temp Pulse Resp B/P Pulse Ox O2 Delivery O2 Flow Rate FiO2 07/24/16 09:51 96 Nasal Cannula 2.00 07/24/16 07:50 97.7 77 116/56 95 07/24/16 04:00 97.0 80 18 143/76 100 07/24/16 00:00 97.0 80 20 134/75 97 07/23/16 22:00 94 Nasal Cannula 2.00 07/23/16 20:00 Nasal Cannula 2.00 07/23/16 20:00 99.0 91 18 116/57 97 07/23/16 20:00 93 07/23/16 16:42 97.8 79 18 127/68 96 07/23/16 16:00 97.8 79 19 127/68 96 07/23/16 12:00 97.6 105 18 135/87 97 I/O 07/23/16 07/23/16 07/23/16 07/24/16 07/24/16 07/24/16 07:00 15:00 23:00 07:00 15:00 23:00 Intake Total 794 ml Output Total 800 ml 1400 ml Balance -800 ml 794 ml -1400 ml IV Total 794 ml Output Urine Total 800 ml 1400 ml Result Diagram: 07/24/16 0747 07/24/16 0747 Imaging Last Impressions Chest X-Ray 07/23/16 0000 Signed Impressions: Service Date/Time: Saturday, July 23, 2016 09:11 - CONCLUSION: No acute cardiopulmonary disease identified. Benjy Arredondo MD Lower Extremity Ultrasound 07/21/16 0000 Signed Impressions: Service Date/Time: July 18:06 - CONCLUSION: Negative of DVT. Ganesh Dale MD FACR Objective Remarks General: Elderly male in no acute distress. Heart: Regular rate and rhythm. No murmur. Lungs: Mild scattered wheeze. Breathing is nonlabored. Abdomen: Soft, nontender, nondistended. Extremities: Left lower extremity with edema, induration, and erythema extending from the mid foot to the upper thigh/groin. Erythema and swelling are improving. No areas of fluctuance are noted. Psych: Alert, confused. Procedures None Urinary Catheter: Yes Assessment to: Continue (Replace rapp today) Rapp insert reason: Obstruction/Retention Vascular Central Line Catheter: No A/P Problem List: (1) Left leg cellulitis ICD Code: L03.116 Status: Acute (2) Alzheimer's dementia ICD Code: G30.9 Status: Acute (3) Hyponatremia ICD Code: E87.1 Status: Acute (4) Coronary artery disease ICD Code: I25.10 Status: Acute (5) Hypertension ICD Code: I10 Status: Acute (6) Anxiety and depression ICD Code: F41.9 Status: Acute (7) Dyspnea ICD Code: R06.00 Status: Acute Assessment and Plan 1. Cellulitis, left lower extremity: Failed outpatient therapy. Patient had been treated with Rocephin and Bactrim at the SNF area and he has had worsening of the cellulitis in the past few days despite antibiotics. Continue vancomycin and Zosyn. There is no drainage available for culture. Ultrasound shows no evidence of DVT. Improving. 2. Dementia: Continue home medications. Patient is confused. 3. Hypertension: Monitor blood pressure. 4. Coronary artery disease: Currently asymptomatic. 5. Hyponatremia: Continue IV fluids. Monitor labs. 6. DVT prophylaxis: Lovenox. 7. Dyspnea: CXR is negative. Concern for possible aspiration. Continue bronchodilators, antibiotics. 8. Sepsis: Secondary to cellulitis, UTI. Continue antibiotics. Infectious disease consult pending. Blood cultures are negative so far. Urine culture is pending. 9. UTI: Continue antibiotics. Culture is pending. 10. CODE STATUS: DO NOT RESUSCITATE. Gamal Chu MD July 24, 2016 11:36
[2016-07-24] MEDS ORDERED: RESP: ALBUTEROL 2.5 MG/3 ML NEB (PRN) NEB (11:45)
[2016-07-24] MEDS: VANCOMYCIN INJ 1,500 MG in SODIUM CHLORID 0.9% 500 ML INJ 500 ML IV SCH ×2 (12:33→21:27)
[2016-07-24] MEDS: LORazepam 0.5 MG TAB PO SCH ×2 (13:16→17:20)
--- NOTE | 2016-07-24 13:28 | PD.CONS ---
History of Present Illness Service Infectious disease Consult Requested By Dr Chu Reason for Consult Evaluate patient with LLE cellulitis Primary Care Physician Anil Mancilla MD Diagnoses: History of Present Illness Patient seen and examined. Records reviewed. I got the history from the patient's . Patient is a 75-year-old male, who was diagnosed to have dementia about 2 years ago, and according to the he had very prominent aggressive behavior. He has been tried on multiple assisted living facilities, but this was complicated by multiple falls. He had sustained a cervical spine fracture that required surgery. Patient ended up in a half-way facility, and again due to his aggressive behavior from his dementia, he has been tried in different nursing facilities. Patient currently has been in his current nursing facility since last year. He has had difficulty ambulating, and since January 2016, patient apparently has been in a wheelchair. Recently probably in the last week patient has been bedbound, and has not really been able to transfer from bed to the wheelchair. According to the about 5 days ago patient was diagnosed to have cellulitis of the left lower extremity. He was apparently started on Rocephin and Bactrim, and he was not improving, so the patient was admitted to the hospital for further evaluation and treatment. There's been no mention that he was having any fever or chills or sweats. Patient sustained some kind of wound on his left retana, probably from a fall in the NH, prior to development of the cellulitis. Patient also has been having problem with cough and the gives a history of asthma as one of the problem of this patient. According to the , his LLE is normally larger compared to the RLE , but he has not had any problem with redness. Albright placed in CT when patient started not being able to transfer to his wheelchair. Since admission, he has not had any fever. His white count has been elevated, and has been worsening. Patient also has been having more problem with coughing , and he's had 3 chest x-rays done which have all shown no acute cardiopulmonary process. Patient has had swallowing evaluation, and there was no evidence of aspiration, but there was some difficulty in following due to his cognitive functions. Patient has been getting IV Vanco and Zosyn, and has been showing improvement. Infectious disease consultation has been requested to evaluate the patient. Review of Systems ROS Limitations: Clinical Condition, Altered Mental Status Past Family Social History Allergies: Coded Allergies: No Known Allergies (Unverified , 07/31/15) Past Medical History Coronary artery disease Hypertension Dementia Anxiety/depression Hyperlipidemia Neuropathy Frequent falls Past Surgical History Pacemaker placement CABG Carpal tunnel release C spine fracture ? Active Ordered Medications Tylenol Albuterol Aspirin Cholecalciferol Depakote Lovenox Ferrous sulfate Proscar Ativan MOM Namenda Lopressor MVI Zyprexa Zofran Ditropan Zosyn Seroquel Exelon Requip Rachel-Colace Flomax IV vancomycin Social History [facility] at least a year or so No smoking No alcohol abuse No illicit drugs Physical Exam Vital Signs Vital Signs Date Time Temp Pulse Resp B/P Pulse Ox O2 Delivery O2 Flow Rate FiO2 07/24/16 09:51 96 Nasal Cannula 2.00 07/24/16 07:50 97.7 77 116/56 95 07/24/16 04:00 97.0 80 18 143/76 100 07/24/16 00:00 97.0 80 20 134/75 97 07/23/16 22:00 94 Nasal Cannula 2.00 07/23/16 20:00 Nasal Cannula 2.00 07/23/16 20:00 99.0 91 18 116/57 97 07/23/16 20:00 93 07/23/16 16:42 97.8 79 18 127/68 96 07/23/16 16:00 97.8 79 19 127/68 96 Physical Exam GENERAL: Patient is an obese, well-developed CM, keeps eyes closed, follows simple commands intermittently, not in respiratory distress. SKIN: Warm and dry. No generalized rash, no ecchymoses and no evidence of embolic lesions. HEAD: Atraumatic. Normocephalic. No temporal wasting, or tenderness. EYES: [place] conjunctiva. No petechia or hemorrhage. Pupils equal, round and reactive to light. No scleral icterus. No injection or drainage. EARS, NOSE AND THROAT: Nose without bleeding or purulent nasal discharge. No sinus tenderness. Mucous membranes pink and moist. No oral lesions noted. No exudate. No oral thrush. NECK: Trachea midline. Supple and not tender, no meningeal signs CARDIOVASCULAR: Regular rate and rhythm. No murmurs, rubs or gallops heard. Pacer ok RESPIRATORY: Clear to auscultation. Breath sounds equal bilaterally. No rales , wheezing or rhonchi. Decreased BS at bases. ABDOMEN: Soft, non-tender, nondistended. Bowel sounds present and normoactive. No guarding. No rebound. No organomegaly. EXTREMITIES: LLE larger compared to RLE. Has edema. Has erythema from ankle from ankle to thigh, with a pea sized scab on anterior retana, with no evidence of infection. No pain in ROM of L ankle, or L knee. No clubbing, cyanosis. Has good ROM on passive movement. No calf tenderness. Well perfused and warm. NEUROLOGICAL: Follows simple commands. PSYCHIATRIC: Unable to assess : Albright in place, urine looks clear LINE: No evidence of infection Laboratory Laboratory Tests Test 07/23/16 07/23/16 07/23/16 07/24/16 17:11 17:25 18:50 07:47 Blood Gas Puncture Site RT RADIAL Blood Gas Patient Temperature 98.6 Blood Gas HCO3 22 Blood Gas Base Excess -1.3 Blood Gas Oxygen Saturation 96 Arterial Blood pH 7.44 Arterial Blood Partial 33 Pressure CO2 Arterial Blood Partial 100 Pressure O2 Arterial Blood Oxygen Content 15.3 Arterial Blood 1.2 Carboxyhemoglobin Arterial Blood Methemoglobin 0.8 Blood Gas Hemoglobin 11.3 Oxygen Delivery Device NASAL CANNULA Blood Gas Liter Flow 2 Urine Color YELLOW Urine Turbidity CLEAR Urine pH 6.0 Urine Specific [place] 1.029 Urine Protein 30 Urine Glucose (UA) NEG Urine Ketones 10 Urine Occult Blood MOD Urine Nitrite NEG Urine Bilirubin NEG Urine Urobilinogen LESS THAN 2.0 Urine Leukocyte Esterase MOD Urine RBC 135 Urine WBC 26 Urine Squamous Epithelial <1 Cells Microscopic Urinalysis Comment CULTURE INDICATED Lactic Acid Level 1.2 White Blood Count 17.5 Red Blood Count 3.23 Hemoglobin 9.8 Hematocrit 29.0 Mean Corpuscular Volume 89.8 Mean Corpuscular Hemoglobin 30.2 Mean Corpuscular Hemoglobin 33.6 Concent Red Cell Distribution Width 14.4 Platelet Count 203 Mean Platelet Volume 6.9 Neutrophils (%) (Auto) 84.5 Lymphocytes (%) (Auto) 7.4 Monocytes (%) (Auto) 4.8 Eosinophils (%) (Auto) 3.0 Basophils (%) (Auto) 0.3 Neutrophils # (Auto) 14.8 Lymphocytes # (Auto) 1.3 Monocytes # (Auto) 0.8 Eosinophils # (Auto) 0.5 Basophils # (Auto) 0.0 CBC Comment AUTO DIFF Differential Total Cells 100 Counted Neutrophils % (Manual) 57 Band Neutrophils % 21 Lymphocytes % 11 Monocytes % 6 Eosinophils % 3 Basophils % 1 Neutrophils # (Manual) 13.8 Myelocytes 1 Differential Comment FINAL DIFF MANUAL Platelet Estimate NORMAL Platelet Morphology Comment NORMAL Sodium Level 129 Potassium Level 4.3 Chloride Level 97 Carbon Dioxide Level 23.1 Anion Gap 9 Blood Urea Nitrogen 15 Creatinine 0.71 Estimat Glomerular Filtration 109 Rate Random Glucose 68 Calcium Level 8.0 Date/Time Procedure Status Source Growth 07/23/16 18:55 Aerobic Blood Culture - Preliminary Resulted Blood Peripheral NO GROWTH IN 1 DAY 07/23/16 18:55 Anaerobic Blood Culture - Preliminary Resulted Blood Peripheral NO GROWTH IN 1 DAY 07/23/16 17:25 Urine Culture Received Urine Other Pending Result Diagram: 07/24/16 0747 07/24/16 0747 Imaging RADIOLOGY STUDIES/FILMS REVIEWED Chest X-Ray 07/23/16 0000 Signed Impressions: Service Date/Time: Saturday, July 23, 2016 09:11 - CONCLUSION: No acute cardiopulmonary disease identified. Benjy Arredondo MD Chest X-Ray 07/22/16 0000 Signed Impressions: Service Date/Time: Friday, July 22, 2016 01:10 - CONCLUSION: 1. Minimal basilar atelectasis. No consolidation or effusion. Mild scoliosis. Artemio Ordonez MD Chest X-Ray 07/21/16 1519 Signed Impressions: Service Date/Time: July 15:27 - CONCLUSION: Normal examination. Cody Waletr MD Last Impressions Chest X-Ray 07/23/16 0000 Signed Impressions: Service Date/Time: Saturday, July 23, 2016 09:11 - CONCLUSION: No acute cardiopulmonary disease identified. Benjy Arredondo MD Lower Extremity Ultrasound 07/21/16 0000 Signed Impressions: Service Date/Time: July 18:06 - CONCLUSION: Negative of DVT. Ganesh Dale MD FACR Assessment and Plan Assessment and Plan IMPRESSION Cellulitis LLE, improving Leukocytosis, worsening - etiololgy? - CXR x 3 ok - UA with some pyuria Dementia RECOMMENDATION Change Zosyn to Levaquin Continue Vanco for now Add Diflucan Follow C/S Follow CBC Monitor progress I will make further recommendation once work-up completed I will follow along with you Thank you for this consultation Discussed Condition With Long discussion with regarding plan and recommendations Answered all her questions Harriett Smith MD July 24, 2016 13:28
[2016-07-24] MEDS: LEVOFLOXACIN 750 MG TAB PO SCH (17:20)
[2016-07-24] MEDS: ENOXAPARIN SODIUM 40 MG/0.4 ML SYRINGE SQ SCH (17:20)
[2016-07-24] MEDS: TAMSULOSIN HCL 0.4 MG CAP PO SCH (21:00)
[2016-07-24] MEDS: QUEtiapine FUMARATE 100 MG TAB PO SCH (21:27)
[2016-07-24] MEDS: OLANZapine 5 MG TAB PO SCH (21:27)
[2016-07-25] VITALS (8 sets, daily range): BP systolic 119–164; BP diastolic 56–71; PULSE 73–107; RESP 20–24; TEMP 97.3–98.8; O2SAT 93–97
[2016-07-25] MEDS: RESP: ALBUTEROL 2.5 MG/IPRATROPIUM 0.5 MG NEB (SCH) NEB ×4 (03:02→21:34)
[2016-07-25 08:46] LABS: BASOPHIL # 0.1 TH/MM3 (0-0.2); BASOPHIL % 0.4 % (0.0-2.0); EOSINOPHIL # 0.3 TH/MM3 (0-0.4); EOSINOPHIL % 1.6 % (0.0-4.0); LYMPH % 3.2 % (9.0-44.0); LYMPHOCYTE # 0.6 TH/MM3 (1.0-4.8); MEAN CELL VOLUME 91.9 FL (80.0-100.0); MEAN CORPUSCULAR HEMOGLOBIN 29.7 PG (27.0-34.0); MEAN CORPUSCULAR HGB CONC 32.3 % (32.0-36.0); MONO % 4.5 % (0.0-8.0); NEUT % 90.3 % (16.0-70.0); PLATELET COUNT 217 TH/MM3 (150-450); RED BLOOD COUNT 3.27 MIL/MM3 (4.50-5.90); RED CELL DISTRIBUTION WIDTH 14.5 % (11.6-17.2)
[2016-07-25 08:49] LABS: HEMO FLAGS AUTO DIFF
[2016-07-25 09:22] LABS: BANDS 17 % (0-6); EOSINOPHILS 2 % (0-4); METAMYELOCYTES 4 % (0-1); MYELOCYTES 4 % (0-0); NEUTROPHIL # MANUAL DIFF 18.8 TH/MM3 (1.8-7.7); POLYS (SEG NEUTROPHILS) 69 % (16-70); WBC DIFF SAMPLE 100
[2016-07-25 09:25] LABS: SCAN/DIFF FINAL DIFF MANUAL
[2016-07-25 09:31] LABS: BICARBONATE 22.7 MEQ/L (21.0-32.0); POTASSIUM 4.4 MEQ/L (3.5-5.1)
[2016-07-25] MEDS: LORazepam 1 MG TAB PO SCH (09:42)
[2016-07-25] MEDS: ASPIRIN 325 MG TAB PO SCH (09:42)
[2016-07-25] MEDS: DIVALPROEX SODIUM SPRINKLES 125 MG CAP PO SCH ×3 (09:42→21:00)
[2016-07-25] MEDS: OXYBUTYNIN CHLORIDE 5 MG TAB PO SCH (09:42)
[2016-07-25] MEDS: LEVOFLOXACIN 750 MG TAB PO SCH (09:43)
[2016-07-25] MEDS: FINASTERIDE 5 MG TAB PO SCH (09:43)
[2016-07-25] MEDS: MEMANTINE HCL 10 MG TAB PO SCH ×2 (09:43→21:00)
[2016-07-25] MEDS: CHOLECALCIFEROL (VIT D3) 400 UNIT TAB PO SCH (09:44)
[2016-07-25] MEDS: QUEtiapine FUMARATE 25 MG TAB PO SCH (09:44)
[2016-07-25] MEDS: MULTIVITAMINS/MINERALS THERAPEUTIC TAB PO SCH (09:45)
[2016-07-25] MEDS: DOCUSATE SODIUM 50 MG/SENNA 8.6 MG TAB PO SCH ×2 (09:45→21:00)
[2016-07-25] MEDS: FERROUS SULFATE 325 MG (65 MG ELEMENTAL IRON) TAB PO SCH ×2 (09:46→21:00)
[2016-07-25] MEDS: METOPROLOL TARTRATE 25 MG TAB PO SCH ×2 (09:46→21:00)
[2016-07-25] MEDS: RIVASTIGMINE TARTRATE 3 MG PO SCH ×2 (11:25→21:00)
[2016-07-25] MEDS: VANCOMYCIN INJ 1,500 MG in SODIUM CHLORID 0.9% 500 ML INJ 500 ML IV SCH ×2 (12:40→21:26)
--- NOTE | 2016-07-25 13:02 | HHI.IDPN ---
Subjective Subjective Remarks Notes reviewed Temps ok at bedside - waiting for swallowing eval Patient not having coughing episodes today On NPO Antibiotics Vancomycin Levaquin Lines PIV Past Medical History Reviewed Allergies: Coded Allergies: No Known Allergies (Unverified , 07/31/15) Objective . Vital Signs Date Time Temp Pulse Resp B/P Pulse Ox O2 Delivery O2 Flow Rate FiO2 07/25/16 11:20 98.8 99 20 119/71 97 07/25/16 07:35 97.7 94 20 164/56 97 07/25/16 04:00 98.1 107 20 120/56 93 07/25/16 00:00 98.5 83 20 145/62 96 07/24/16 22:24 Nasal Cannula 2.00 07/24/16 22:09 97 Nasal Cannula 2.00 07/24/16 20:00 96.6 96 18 114/54 96 07/24/16 15:15 96.7 76 102/53 97 07/24/16 07/24/16 07/25/16 14:59 22:59 06:59 Output Total 1950 ml 400 ml Balance -1950 ml -400 ml Output Urine Total 1950 ml 400 ml . Laboratory Tests Test 07/24/16 07/25/16 07:47 08:07 White Blood Count 17.5 TH/MM3 20.0 TH/MM3 Red Blood Count 3.23 MIL/MM3 3.27 MIL/MM3 Hemoglobin 9.8 GM/DL 9.7 GM/DL Hematocrit 29.0 % 30.0 % Mean Corpuscular Volume 89.8 FL 91.9 FL Mean Corpuscular Hemoglobin 30.2 PG 29.7 PG Mean Corpuscular Hemoglobin 33.6 % 32.3 % Concent Red Cell Distribution Width 14.4 % 14.5 % Platelet Count 203 TH/MM3 217 TH/MM3 Mean Platelet Volume 6.9 FL 6.8 FL Neutrophils (%) (Auto) 84.5 % 90.3 % Lymphocytes (%) (Auto) 7.4 % 3.2 % Monocytes (%) (Auto) 4.8 % 4.5 % Eosinophils (%) (Auto) 3.0 % 1.6 % Basophils (%) (Auto) 0.3 % 0.4 % Neutrophils # (Auto) 14.8 TH/MM3 18.0 TH/MM3 Lymphocytes # (Auto) 1.3 TH/MM3 0.6 TH/MM3 Monocytes # (Auto) 0.8 TH/MM3 0.9 TH/MM3 Eosinophils # (Auto) 0.5 TH/MM3 0.3 TH/MM3 Basophils # (Auto) 0.0 TH/MM3 0.1 TH/MM3 CBC Comment AUTO DIFF AUTO DIFF Differential Total Cells 100 100 Counted Neutrophils % (Manual) 57 % 69 % Band Neutrophils % 21 % 17 % Lymphocytes % 11 % 2 % Monocytes % 6 % 2 % Eosinophils % 3 % 2 % Basophils % 1 % Neutrophils # (Manual) 13.8 TH/MM3 18.8 TH/MM3 Myelocytes 1 % 4 % Differential Comment FINAL DIFF FINAL DIFF MANUAL MANUAL Platelet Estimate NORMAL Platelet Morphology Comment NORMAL Metamyelocytes 4 % Laboratory Tests Test 07/23/16 07/24/16 07/25/16 18:50 07:47 08:07 Lactic Acid Level 1.2 mmol/L Sodium Level 129 MEQ/L 132 MEQ/L Potassium Level 4.3 MEQ/L 4.4 MEQ/L Chloride Level 97 MEQ/L 98 MEQ/L Carbon Dioxide Level 23.1 MEQ/L 22.7 MEQ/L Anion Gap 9 MEQ/L 11 MEQ/L Blood Urea Nitrogen 15 MG/DL 10 MG/DL Creatinine 0.71 MG/DL 0.58 MG/DL Estimat Glomerular Filtration 109 ML/MIN 137 ML/MIN Rate Random Glucose 68 MG/DL 72 MG/DL Calcium Level 8.0 MG/DL 8.0 MG/DL Microbiology Date/Time Procedure Status Source Growth 07/23/16 17:25 Urine Culture - Final Complete Urine Other NO GROWTH IN 48 HOURS. 07/23/16 18:50 Aerobic Blood Culture - Preliminary Resulted Blood Peripheral NO GROWTH IN 2 DAYS 07/23/16 18:50 Anaerobic Blood Culture - Preliminary Resulted Blood Peripheral NO GROWTH IN 2 DAYS 07/23/16 18:55 Aerobic Blood Culture - Preliminary Resulted Blood Peripheral NO GROWTH IN 2 DAYS 07/23/16 18:55 Anaerobic Blood Culture - Preliminary Resulted Blood Peripheral NO GROWTH IN 2 DAYS Imaging Chest X-Ray 07/23/16 0000 Signed Impressions: Service Date/Time: Saturday, July 23, 2016 09:11 - CONCLUSION: No acute cardiopulmonary disease identified. Benjy Arredondo MD Lower Extremity Ultrasound 07/21/16 0000 Signed Impressions: Service Date/Time: July 18:06 - CONCLUSION: Negative of DVT. Ganesh Dale MD FACR Physical Exam GENERAL: keeps eyes closed, follows simple commands intermittently, not in respiratory distress. SKIN: Warm and dry. No generalized rash HEAD: Atraumatic. Normocephalic. No temporal wasting, or tenderness. EYES: [place] conjunctiva. No petechia or hemorrhage. Pupils equal, round and reactive to light. No scleral icterus. No injection or drainage. EARS, NOSE AND THROAT: Nose without bleeding or purulent nasal discharge. Mucous membranes pink and moist. No oral lesions noted. NECK: Trachea midline. Supple and not tender, no meningeal signs CARDIOVASCULAR: Regular rate and rhythm. No murmurs, rubs or gallops heard. Pacer ok RESPIRATORY: Clear to auscultation. Breath sounds equal bilaterally. No rales , wheezing or rhonchi. Decreased BS at bases. ABDOMEN: Soft, non-tender, nondistended. Bowel sounds present and normoactive. No guarding. No rebound. No organomegaly. EXTREMITIES: LLE larger compared to RLE. Has edema. Erytmea whol LLE markedly improved, mostly concentrated over his ankle. Skin dry with some desquamation Well perfused and warm. NEUROLOGICAL: Follows simple commands. PSYCHIATRIC: Unable to assess : Albright in place, urine looks clear LINE: No evidence of infection Assessment & Plan Remarks IMPRESSION Cellulitis LLE, much improved Leukocytosis, worsening - etiology? - CXR x 3 ok - UA with some pyuria - cellulitis better Dementia RECOMMENDATION Continue Levaquin Continue Vanco for now Continue Diflucan for now Follow C/S Follow CBC Monitor progress Spoke with - very concerned that patient has not eaten, and she is eagerly awaiting swallowing ata Zhang/Harriett Thorne RN, MD July 25, 2016 13:02
--- NOTE | 2016-07-25 16:12 | HHI.PR ---
Subjective Remarks Follow-up sepsis, hyponatremia. The patient states that he feels okay today. His is at bedside and states that he has been doing better. Cellulitis continues to improve. He ate soup and pudding for lunch without difficulty. Objective Vitals Vital Signs Date Time Temp Pulse Resp B/P Pulse Ox O2 Delivery O2 Flow Rate FiO2 07/25/16 11:20 98.8 99 20 119/71 97 07/25/16 07:35 97.7 94 20 164/56 97 07/25/16 04:00 98.1 107 20 120/56 93 07/25/16 00:00 98.5 83 20 145/62 96 07/24/16 22:24 Nasal Cannula 2.00 07/24/16 22:09 97 Nasal Cannula 2.00 07/24/16 20:00 96.6 96 18 114/54 96 I/O 07/24/16 07/24/16 07/24/16 07/25/16 07/25/16 07/25/16 07:00 15:00 23:00 07:00 15:00 23:00 Output Total 1400 ml 1950 ml 400 ml Balance -1400 ml -1950 ml -400 ml Output Urine Total 1400 ml 1950 ml 400 ml Result Diagram: 07/25/16 0807 07/25/16 0807 Imaging Last Impressions Chest X-Ray 07/23/16 0000 Signed Impressions: Service Date/Time: Saturday, July 23, 2016 09:11 - CONCLUSION: No acute cardiopulmonary disease identified. Benjy Arredondo MD Lower Extremity Ultrasound 07/21/16 0000 Signed Impressions: Service Date/Time: July 18:06 - CONCLUSION: Negative of DVT. Ganesh Dale MD FACR Objective Remarks General: Elderly male in no acute distress. Heart: Regular rate and rhythm. No murmur. Lungs: Mild scattered wheeze. Breathing is nonlabored. Abdomen: Soft, nontender, nondistended. Extremities: Left lower extremity with edema, induration, and erythema extending from the mid foot to the upper thigh/groin. Erythema and swelling are significantly improved. No areas of fluctuance are noted. Psych: Alert, confused. Procedures None Urinary Catheter: Yes Assessment to: Continue Albright insert reason: Obstruction/Retention Vascular Central Line Catheter: No A/P Problem List: (1) Left leg cellulitis ICD Code: L03.116 Status: Acute (2) Alzheimer's dementia ICD Code: G30.9 Status: Acute (3) Hyponatremia ICD Code: E87.1 Status: Acute (4) Coronary artery disease ICD Code: I25.10 Status: Acute (5) Hypertension ICD Code: I10 Status: Acute (6) Anxiety and depression ICD Code: F41.9 Status: Acute (7) Dyspnea ICD Code: R06.00 Status: Acute Assessment and Plan 1. Cellulitis, left lower extremity: Failed outpatient therapy. Patient had been treated with Rocephin and Bactrim at the SNF area and he has had worsening of the cellulitis in the past few days despite antibiotics. Continue vancomycin and Zosyn. There is no drainage available for culture. Ultrasound shows no evidence of DVT. Improving. 2. Dementia: Continue home medications. Patient is confused. 3. Hypertension: Monitor blood pressure. 4. Coronary artery disease: Currently asymptomatic. 5. Hyponatremia: Continue IV fluids. Monitor labs. 6. DVT prophylaxis: Lovenox. 7. Dyspnea: CXR is negative. Concern for possible aspiration. Continue bronchodilators, antibiotics. 8. Sepsis: Secondary to cellulitis, UTI. Continue antibiotics. Appreciate infectious disease recommendations. Blood cultures are negative so far. Urine culture is negative. 9. UTI: Continue antibiotics. Culture is pending. 10. Urinary retention: Albright catheter in place. Consult urology. 11. CODE STATUS: DO NOT RESUSCITATE. Gamal Chu MD July 25, 2016 16:12
[2016-07-25] MEDS: ENOXAPARIN SODIUM 40 MG/0.4 ML SYRINGE SQ SCH (17:09)
[2016-07-25] MEDS: LORazepam 0.5 MG TAB PO SCH (17:09)
[2016-07-25] MEDS: QUEtiapine FUMARATE 100 MG TAB PO SCH (21:00)
[2016-07-25] MEDS: OLANZapine 5 MG TAB PO SCH (21:00)
[2016-07-25] MEDS: TAMSULOSIN HCL 0.4 MG CAP PO SCH (21:00)
[2016-07-26] VITALS (10 sets, daily range): BP systolic 118–138; BP diastolic 59–63; PULSE 72–108; RESP 18–24; TEMP 96–99.2; O2SAT 93–99
[2016-07-26] MEDS: RESP: ALBUTEROL 2.5 MG/IPRATROPIUM 0.5 MG NEB (SCH) NEB (03:38)
--- NOTE | 2016-07-26 05:30 | MB ---
cc: KIKO CASTRO MD DATE OF CONSULTATION 07/25/2016 REASON FOR CONSULTATION Urinary retention and Albright catheter wear. CURRENT HISTORY This gentleman is a 75-year-old who was brought to the emergency room from a intermediate facility primarily for left lower extremity cellulitis that had been worsening over the previous few days. The gentleman is demented. He is unable to provide any history to me. There is nobody on the floor who is able to communicate with me at the moment. He has a Albright catheter in place. As I have read the notes, though I am not sure of this, it would appear that perhaps the Albright catheter had been in place and there was a note that it was to be changed, so again I am not certain how much urine output he had with the Albright catheter placement. ASSESSMENT AND PLAN In any event the Albright catheter appears to be in good position. The gentleman is clearly demented. According to the nurses he is incontinent of stool. I am not certain if he was in retention or not. We are happy to help with this gentleman on an outpatient basis once all of his medical issues are straightened around, but given that he has a clean catheter in place at the moment, nothing needs to be done about that at least for the next 30 days. We will see him in the hospital on a p.r.n. basis and if we can be helpful an outpatient basis, we are happy to have him seen in the clinic for further workup if it is indicated. MD LAQUITA Mccann/DOMINGO /5:52 PM /5:26 AM
[2016-07-26] MEDS: DIVALPROEX SODIUM SPRINKLES 125 MG CAP PO SCH ×3 (09:34→21:00)
[2016-07-26] MEDS: FINASTERIDE 5 MG TAB PO SCH (09:35)
[2016-07-26] MEDS: QUEtiapine FUMARATE 25 MG TAB PO SCH (09:35)
[2016-07-26] MEDS: METOPROLOL TARTRATE 25 MG TAB PO SCH ×2 (09:35→21:00)
[2016-07-26] MEDS: ASPIRIN 325 MG TAB PO SCH (09:35)
[2016-07-26] MEDS: MULTIVITAMINS/MINERALS THERAPEUTIC TAB PO SCH (09:35)
[2016-07-26] MEDS: LORazepam 1 MG TAB PO SCH (09:36)
[2016-07-26] MEDS: OXYBUTYNIN CHLORIDE 5 MG TAB PO SCH (09:36)
[2016-07-26] MEDS: RIVASTIGMINE TARTRATE 3 MG PO SCH ×2 (09:36→21:00)
[2016-07-26] MEDS: DOCUSATE SODIUM 50 MG/SENNA 8.6 MG TAB PO SCH ×2 (09:36→21:00)
[2016-07-26] MEDS: FERROUS SULFATE 325 MG (65 MG ELEMENTAL IRON) TAB PO SCH ×2 (09:36→21:00)
[2016-07-26] MEDS: MEMANTINE HCL 10 MG TAB PO SCH ×2 (09:36→21:00)
[2016-07-26] MEDS: LEVOFLOXACIN 750 MG TAB PO SCH (09:36)
[2016-07-26] MEDS: CHOLECALCIFEROL (VIT D3) 400 UNIT TAB PO SCH (09:37)
[2016-07-26] MEDS ORDERED: PHARMACY ORDERED LAB ONE (09:45)
--- NOTE | 2016-07-26 11:14 | HHI.PR ---
Subjective Remarks Follow up cellulitis, leukocytosis. Patient is sitting in a chair. He is more alert today, but remains confused. Objective Vitals Vital Signs Date Time Temp Pulse Resp B/P Pulse Ox O2 Delivery O2 Flow Rate FiO2 07/26/16 09:06 96.1 104 18 138/63 99 07/26/16 06:40 98.2 72 18 128/ 97 07/26/16 03:39 95 Nasal Cannula 2.00 07/26/16 00:00 97.9 100 24 135/60 96 07/25/16 22:00 Room Air 07/25/16 20:00 98.3 94 24 126/59 97 07/25/16 16:17 97 Nasal Cannula 2.00 07/25/16 16:10 97.3 93 20 134/67 97 07/25/16 11:20 98.8 99 20 119/71 97 I/O 07/25/16 07/25/16 07/25/16 07/26/16 07/26/16 07/26/16 07:00 15:00 23:00 07:00 15:00 23:00 Output Total 400 ml 1300 ml Balance -400 ml -1300 ml Output Urine Total 400 ml 1300 ml # Voids 1 # Bowel Movements 4 1 Result Diagram: 07/25/16 0807 07/25/16 0807 Imaging Last Impressions Chest X-Ray 07/23/16 0000 Signed Impressions: Service Date/Time: Saturday, July 23, 2016 09:11 - CONCLUSION: No acute cardiopulmonary disease identified. Benjy Arredondo MD Lower Extremity Ultrasound 07/21/16 0000 Signed Impressions: Service Date/Time: July 18:06 - CONCLUSION: Negative of DVT. Ganesh Dale MD FACR Objective Remarks General: Elderly male in no acute distress. Heart: Regular rate and rhythm. No murmur. Lungs: Mild scattered wheeze. Breathing is nonlabored. Abdomen: Soft, nontender, nondistended. Extremities: Left lower extremity with edema, induration, and erythema extending from the mid foot to the upper thigh/groin. Erythema and swelling continue to improve. No areas of fluctuance are noted. Psych: Alert, confused. Skin: There is erythema in the gluteal cleft. No open wound. Procedures None Urinary Catheter: Yes Assessment to: Continue Albright insert reason: Obstruction/Retention Vascular Central Line Catheter: No A/P Problem List: (1) Left leg cellulitis ICD Code: L03.116 Status: Acute (2) Alzheimer's dementia ICD Code: G30.9 Status: Acute (3) Hyponatremia ICD Code: E87.1 Status: Acute (4) Coronary artery disease ICD Code: I25.10 Status: Acute (5) Hypertension ICD Code: I10 Status: Acute (6) Anxiety and depression ICD Code: F41.9 Status: Acute (7) Dyspnea ICD Code: R06.00 Status: Acute Assessment and Plan 1. Cellulitis, left lower extremity: Failed outpatient therapy. Patient had been treated with Rocephin and Bactrim at the SNF area and he has had worsening of the cellulitis in the past few days despite antibiotics. Continue vancomycin and Levaquin. There is no drainage available for culture. Ultrasound shows no evidence of DVT. Improving. 2. Dementia: Continue home medications. Patient is confused. 3. Hypertension: Monitor blood pressure. 4. Coronary artery disease: Currently asymptomatic. 5. Hyponatremia: Continue IV fluids. Monitor labs. 6. DVT prophylaxis: Lovenox. 7. Dyspnea: CXR is negative. Concern for possible aspiration. Continue bronchodilators, antibiotics. 8. Sepsis: Secondary to cellulitis, UTI. Continue antibiotics. Appreciate infectious disease recommendations. Blood cultures are negative so far. Urine culture is negative. 9. UTI: Continue antibiotics. Culture is pending. 10. Urinary retention: Albright catheter in place. Appreciate urology recommendations. 11. CODE STATUS: DO NOT RESUSCITATE. Gamal Chu MD July 26, 2016 11:05
[2016-07-26 11:51] LABS: AUTOMATED NEUTROPHIL # 15.1 TH/MM3 (1.8-7.7); BASOPHIL # 0.1 TH/MM3 (0-0.2); BASOPHIL % 0.3 % (0.0-2.0); EOSINOPHIL # 0.1 TH/MM3 (0-0.4); EOSINOPHIL % 0.7 % (0.0-4.0); HEMATOCRIT 31.7 % (39.0-51.0); LYMPH % 5.1 % (9.0-44.0); LYMPHOCYTE # 0.9 TH/MM3 (1.0-4.8); MEAN CELL VOLUME 91.6 FL (80.0-100.0); MEAN CORPUSCULAR HEMOGLOBIN 29.4 PG (27.0-34.0); MEAN CORPUSCULAR HGB CONC 32.1 % (32.0-36.0); MONO % 5.9 % (0.0-8.0); PLATELET COUNT 260 TH/MM3 (150-450); RED BLOOD COUNT 3.46 MIL/MM3 (4.50-5.90); RED CELL DISTRIBUTION WIDTH 14.3 % (11.6-17.2); WHITE BLOOD COUNT 17.2 TH/MM3 (4.0-11.0)
[2016-07-26 11:55] LABS: HEMO FLAGS AUTO DIFF
[2016-07-26 12:05] LABS: BICARBONATE 27.4 MEQ/L (21.0-32.0); POTASSIUM 4.1 MEQ/L (3.5-5.1)
[2016-07-26] MEDS: VANCOMYCIN INJ 1,500 MG in SODIUM CHLORID 0.9% 500 ML INJ 500 ML IV SCH (12:38)
[2016-07-26 13:25] LABS: BANDS 16 % (0-6); CORRECTED NUCLEATED RBC 1 /100 WBC (0-0); METAMYELOCYTES 3 % (0-1); MYELOCYTES 5 % (0-0); NEUTROPHIL # MANUAL DIFF 14.8 TH/MM3 (1.8-7.7); POLYS (SEG NEUTROPHILS) 62 % (16-70); WBC DIFF SAMPLE 100
[2016-07-26 13:27] LABS: SCAN/DIFF FINAL DIFF MANUAL
[2016-07-26] MEDS: ENOXAPARIN SODIUM 40 MG/0.4 ML SYRINGE SQ SCH (16:27)
[2016-07-26] MEDS: LORazepam 0.5 MG TAB PO SCH (18:35)
[2016-07-26] MEDS: TAMSULOSIN HCL 0.4 MG CAP PO SCH (21:00)
[2016-07-26] MEDS: QUEtiapine FUMARATE 100 MG TAB PO SCH (21:00)
[2016-07-26] MEDS: OLANZapine 5 MG TAB PO SCH (21:00)
[2016-07-26] MEDS: VANCOMYCIN INJ 1,750 MG in SODIUM CHLORID 0.9% 500 ML INJ 500 ML IV SCH (21:50)
[2016-07-27] VITALS (8 sets, daily range): BP systolic 118–141; BP diastolic 58–69; PULSE 81–99; RESP 18–32; TEMP 97–99.3; O2SAT 93–100
[2016-07-27] MEDS: RIVASTIGMINE TARTRATE 3 MG PO SCH ×2 (09:08→20:35)
[2016-07-27] MEDS: LORazepam 1 MG TAB PO SCH (09:08)
[2016-07-27] MEDS: MEMANTINE HCL 10 MG TAB PO SCH ×2 (09:08→20:36)
[2016-07-27] MEDS: MULTIVITAMINS/MINERALS THERAPEUTIC TAB PO SCH (09:08)
[2016-07-27] MEDS: ASPIRIN 325 MG TAB PO SCH (09:08)
[2016-07-27] MEDS: METOPROLOL TARTRATE 25 MG TAB PO SCH ×2 (09:09→20:36)
[2016-07-27] MEDS: CHOLECALCIFEROL (VIT D3) 400 UNIT TAB PO SCH (09:09)
[2016-07-27] MEDS: LEVOFLOXACIN 750 MG TAB PO SCH (09:09)
[2016-07-27] MEDS: FERROUS SULFATE 325 MG (65 MG ELEMENTAL IRON) TAB PO SCH ×2 (09:09→20:35)
[2016-07-27] MEDS: FINASTERIDE 5 MG TAB PO SCH (09:09)
[2016-07-27] MEDS: OXYBUTYNIN CHLORIDE 5 MG TAB PO SCH (09:09)
[2016-07-27] MEDS: DOCUSATE SODIUM 50 MG/SENNA 8.6 MG TAB PO SCH ×2 (09:09→20:35)
[2016-07-27] MEDS: QUEtiapine FUMARATE 25 MG TAB PO SCH (09:09)
[2016-07-27] MEDS: DIVALPROEX SODIUM SPRINKLES 125 MG CAP PO SCH ×3 (09:09→20:38)
[2016-07-27] MEDS: VANCOMYCIN INJ 1,750 MG in SODIUM CHLORID 0.9% 500 ML INJ 500 ML IV SCH (10:05)
[2016-07-27 11:13] LABS: BICARBONATE 24.3 MEQ/L (21.0-32.0); MAGNESIUM 2.2 MG/DL (1.5-2.5); POTASSIUM 4.2 MEQ/L (3.5-5.1)
--- NOTE | 2016-07-27 11:37 | HHI.PR ---
Subjective Remarks Follow up cellulitis, leukocytosis. The patient remains confused. His states that he has been sleeping this morning. He denies dyspnea, chest pain. Objective Vitals Vital Signs Date Time Temp Pulse Resp B/P Pulse Ox O2 Delivery O2 Flow Rate FiO2 07/27/16 09:34 93 21 07/27/16 08:51 97.4 94 18 139/69 100 07/27/16 08:00 82 07/27/16 04:00 99.1 95 20 126/64 97 07/27/16 00:00 97.0 99 20 119/69 98 07/26/16 22:07 97 Nasal Cannula 2.00 07/26/16 20:00 99.1 86 20 120/61 98 07/26/16 20:00 85 07/26/16 19:00 97 Nasal Cannula 2.00 07/26/16 16:55 96.0 96 19 123/63 97 07/26/16 13:18 93 Nasal Cannula 2.00 I/O 07/26/16 07/26/16 07/26/16 07/27/16 07/27/16 07/27/16 07:00 15:00 23:00 07:00 15:00 23:00 Intake Total 980 ml 200 ml Output Total 825 ml 1000 ml Balance 155 ml -800 ml Intake Oral 480 ml 200 ml IV Total 500 ml Output Urine Total 825 ml 1000 ml # Voids 1 # Bowel Movements 1 0 0 Result Diagram: 07/26/16 1001 07/27/16 1050 Imaging Last Impressions Chest X-Ray 07/23/16 0000 Signed Impressions: Service Date/Time: Saturday, July 23, 2016 09:11 - CONCLUSION: No acute cardiopulmonary disease identified. Benjy Arredondo MD Lower Extremity Ultrasound 07/21/16 0000 Signed Impressions: Service Date/Time: July 18:06 - CONCLUSION: Negative of DVT. Ganesh Dale MD FACR Objective Remarks General: Elderly male in no acute distress. Heart: Regular rate and rhythm. No murmur. Lungs: Mild scattered wheeze. Breathing is nonlabored. Abdomen: Soft, nontender, nondistended. Extremities: Left lower extremity with edema, induration, and erythema extending from the mid foot to the upper thigh/groin. Erythema and swelling continue to improve. No areas of fluctuance are noted. Psych: Alert, confused. Procedures None Urinary Catheter: Yes Assessment to: Remove Vascular Central Line Catheter: No A/P Problem List: (1) Left leg cellulitis ICD Code: L03.116 Status: Acute (2) Alzheimer's dementia ICD Code: G30.9 Status: Chronic (3) Hyponatremia ICD Code: E87.1 Status: Acute (4) Coronary artery disease ICD Code: I25.10 Status: Chronic (5) Hypertension ICD Code: I10 Status: Chronic (6) Anxiety and depression ICD Code: F41.9 Status: Chronic (7) Dyspnea ICD Code: R06.00 Status: Acute Assessment and Plan 1. Cellulitis, left lower extremity: Failed outpatient therapy. Patient had been treated with Rocephin and Bactrim at the SNF area and he has had worsening of the cellulitis in the past few days despite antibiotics. Continue vancomycin and Levaquin. There is no drainage available for culture. Ultrasound shows no evidence of DVT. Improving. 2. Dementia: Continue home medications. Patient is confused. 3. Hypertension: Monitor blood pressure. 4. Coronary artery disease: Currently asymptomatic. 5. Hyponatremia: Continue IV fluids. Monitor labs. 6. DVT prophylaxis: Lovenox. 7. Dyspnea: CXR is negative. Concern for possible aspiration. Continue bronchodilators, antibiotics. 8. Sepsis: Secondary to cellulitis, UTI. Continue antibiotics. Appreciate infectious disease recommendations. Blood cultures are negative so far. Urine culture is negative. 9. UTI: Continue antibiotics. Culture is negative. 10. Urinary retention: Appreciate urology recommendations. Albright was placed at [facility] prior to admission. It was changed during this hospitalization. Uncertain if patient has had retention. He has pulled Albright out multiple times, including once reportedly during this hospitalization. Will remove Albright today and attempt void trial. 11. CODE STATUS: DO NOT RESUSCITATE. Gamal Chu MD July 27, 2016 11:36
--- NOTE | 2016-07-27 12:45 | HHI.IDPN ---
Subjective Subjective Remarks Notes reviewed D/W RN Temps ok Passed swallowing ata Had some problems with his pills - thinks he is tired of taking apple sauce Antibiotics Vancomycin Levaquin Lines PIV Past Medical History Reviewed Allergies: Coded Allergies: No Known Allergies (Unverified , 07/31/15) Objective . Vital Signs Date Time Temp Pulse Resp B/P Pulse Ox O2 Delivery O2 Flow Rate FiO2 07/27/16 09:34 93 21 07/27/16 08:51 97.4 94 18 139/69 100 07/27/16 08:00 82 07/27/16 04:00 99.1 95 20 126/64 97 07/27/16 00:00 97.0 99 20 119/69 98 07/26/16 22:07 97 Nasal Cannula 2.00 07/26/16 20:00 99.1 86 20 120/61 98 07/26/16 20:00 85 07/26/16 19:00 97 Nasal Cannula 2.00 07/26/16 16:55 96.0 96 19 123/63 97 07/26/16 13:18 93 Nasal Cannula 2.00 07/26/16 07/26/16 07/27/16 15:00 23:00 07:00 Intake Total 980 ml 200 ml Output Total 825 ml 1000 ml Balance 155 ml -800 ml Intake Oral 480 ml 200 ml IV Total 500 ml Output Urine Total 825 ml 1000 ml # Bowel Movements 0 0 . Laboratory Tests Test 07/26/16 10:01 White Blood Count 17.2 TH/MM3 Red Blood Count 3.46 MIL/MM3 Hemoglobin 10.2 GM/DL Hematocrit 31.7 % Mean Corpuscular Volume 91.6 FL Mean Corpuscular Hemoglobin 29.4 PG Mean Corpuscular Hemoglobin 32.1 % Concent Red Cell Distribution Width 14.3 % Platelet Count 260 TH/MM3 Mean Platelet Volume 7.0 FL Neutrophils (%) (Auto) 88.0 % Lymphocytes (%) (Auto) 5.1 % Monocytes (%) (Auto) 5.9 % Eosinophils (%) (Auto) 0.7 % Basophils (%) (Auto) 0.3 % Neutrophils # (Auto) 15.1 TH/MM3 Lymphocytes # (Auto) 0.9 TH/MM3 Monocytes # (Auto) 1.0 TH/MM3 Eosinophils # (Auto) 0.1 TH/MM3 Basophils # (Auto) 0.1 TH/MM3 CBC Comment AUTO DIFF Differential Total Cells 100 Counted Neutrophils % (Manual) 62 % Band Neutrophils % 16 % Lymphocytes % 7 % Monocytes % 7 % Neutrophils # (Manual) 14.8 TH/MM3 Metamyelocytes 3 % Myelocytes 5 % Nucleated Red Blood Cells 1 /100 WBC Differential Comment FINAL DIFF MANUAL Laboratory Tests Test 07/26/16 07/27/16 10:01 10:50 Sodium Level 135 MEQ/L 135 MEQ/L Potassium Level 4.1 MEQ/L 4.2 MEQ/L Chloride Level 99 MEQ/L 102 MEQ/L Carbon Dioxide Level 27.4 MEQ/L 24.3 MEQ/L Anion Gap 9 MEQ/L 9 MEQ/L Blood Urea Nitrogen 7 MG/DL 6 MG/DL Creatinine 0.61 MG/DL 0.57 MG/DL Estimat Glomerular Filtration 130 ML/MIN 140 ML/MIN Rate Random Glucose 110 MG/DL 114 MG/DL Calcium Level 8.4 MG/DL 8.1 MG/DL Magnesium Level 2.2 MG/DL Imaging Chest X-Ray 07/23/16 0000 Signed Impressions: Service Date/Time: Saturday, July 23, 2016 09:11 - CONCLUSION: No acute cardiopulmonary disease identified. Benjy Arredondo MD Lower Extremity Ultrasound 07/21/16 0000 Signed Impressions: Service Date/Time: July 18:06 - CONCLUSION: Negative of DVT. Ganesh Dale MD FACR Physical Exam GENERAL: keeps eyes closed, interacting, answering my questions, not in respiratory distress. SKIN: Warm and dry. No generalized rash HEAD: Atraumatic. Normocephalic. No temporal wasting, or tenderness. EYES: [place] conjunctiva. No petechia or hemorrhage. No scleral icterus. No injection or drainage. EARS, NOSE AND THROAT: Nose without bleeding or purulent nasal discharge. Mucous membranes pink and moist. No oral lesions noted. NECK: Trachea midline. Supple and not tender, no meningeal signs CARDIOVASCULAR: Regular rate and rhythm. No murmurs, rubs or gallops heard. Pacer ok RESPIRATORY: Clear to auscultation. Breath sounds equal bilaterally. No rales , wheezing or rhonchi. Decreased BS at bases. ABDOMEN: Soft, non-tender, nondistended. Bowel sounds present and normoactive. No guarding. No rebound. No organomegaly. EXTREMITIES: LLE larger compared to RLE. Has edema. Erythema LLE markedly improved, mostly concentrated over his ankle. Skin dry with some desquamation Well perfused and warm. NEUROLOGICAL: Follows simple commands. PSYCHIATRIC: Unable to assess : Albright in place, urine looks clear LINE: No evidence of infection Assessment & Plan Remarks IMPRESSION Cellulitis LLE, much improved Leukocytosis, improving - etiology? - CXR x 3 ok - UA with some pyuria - cellulitis better Dementia RECOMMENDATION Continue Levaquin Change Vanco to Clindamcyin Give oral Abx until August 03 PJ adkins Clinically doing well from ID standpoint - can be D/C from ID standpoint I will sign off Please call if with any new ID issue or question Explained recommendation to D/W Harriett Gaines MD July 27, 2016 12:45
[2016-07-27 12:50] LABS: AUTOMATED NEUTROPHIL # 11.9 TH/MM3 (1.8-7.7); BASOPHIL % 0.3 % (0.0-2.0); EOSINOPHIL # 0.2 TH/MM3 (0-0.4); EOSINOPHIL % 1.1 % (0.0-4.0); HEMATOCRIT 27.6 % (39.0-51.0); LYMPH % 7.8 % (9.0-44.0); LYMPHOCYTE # 1.1 TH/MM3 (1.0-4.8); MEAN CELL VOLUME 90.5 FL (80.0-100.0); MEAN CORPUSCULAR HEMOGLOBIN 30.9 PG (27.0-34.0); MEAN CORPUSCULAR HGB CONC 34.2 % (32.0-36.0); MONO % 8.6 % (0.0-8.0); NEUT % 82.2 % (16.0-70.0); PLATELET COUNT 251 TH/MM3 (150-450); RED BLOOD COUNT 3.06 MIL/MM3 (4.50-5.90); RED CELL DISTRIBUTION WIDTH 14.4 % (11.6-17.2); WHITE BLOOD COUNT 14.5 TH/MM3 (4.0-11.0)
[2016-07-27 13:00] LABS: HEMO FLAGS AUTO DIFF
[2016-07-27 14:00] LABS: BANDS 7 % (0-6); EOSINOPHILS 3 % (0-4); METAMYELOCYTES 1 % (0-1); MYELOCYTES 3 % (0-0); NEUTROPHIL # MANUAL DIFF 12.9 TH/MM3 (1.8-7.7); POLYS (SEG NEUTROPHILS) 78 % (16-70); WBC DIFF SAMPLE 100
[2016-07-27] MEDS: CLINDAMYCIN 150 MG CAP PO SCH ×2 (14:00→21:56)
[2016-07-27 14:02] LABS: PLATELET ESTIMATE SMEAR NORMAL (NORMAL); PLATELET MORPHOLOGY NORMAL (NORMAL); SCAN/DIFF FINAL DIFF MANUAL
[2016-07-27] MEDS: LORazepam 0.5 MG TAB PO SCH (17:20)
[2016-07-27] MEDS: ENOXAPARIN SODIUM 40 MG/0.4 ML SYRINGE SQ SCH (17:20)
[2016-07-27] MEDS: OLANZapine 5 MG TAB PO SCH (20:35)
[2016-07-27] MEDS: QUEtiapine FUMARATE 100 MG TAB PO SCH (20:35)
[2016-07-27] MEDS: TAMSULOSIN HCL 0.4 MG CAP PO SCH (20:36)
[2016-07-28] VITALS: BP 103/53; PULSE 83; RESP 24; TEMP 99.7; O2SAT 95
[2016-07-28 04:00] VITALS: BP 115/58; PULSE 104; RESP 22; TEMP 99; O2SAT 94
[2016-07-28] MEDS: CLINDAMYCIN 150 MG CAP PO SCH ×2 (06:00→13:24)
[2016-07-28 08:00] VITALS: BP 114/58; PULSE 89; RESP 21; TEMP 98.1; O2SAT 94
[2016-07-28] MEDS: QUEtiapine FUMARATE 25 MG TAB PO SCH (09:00)
[2016-07-28] MEDS: MEMANTINE HCL 10 MG TAB PO SCH (09:00)
[2016-07-28 09:08] LABS: AUTOMATED NEUTROPHIL # 9.1 TH/MM3 (1.8-7.7); BASOPHIL % 0.3 % (0.0-2.0); EOSINOPHIL # 0.2 TH/MM3 (0-0.4); EOSINOPHIL % 1.7 % (0.0-4.0); HEMATOCRIT 26.6 % (39.0-51.0); HEMO FLAGS DIFF FINAL; LYMPHOCYTE # 1.3 TH/MM3 (1.0-4.8); MEAN CELL VOLUME 90.5 FL (80.0-100.0); MEAN CORPUSCULAR HEMOGLOBIN 30.3 PG (27.0-34.0); MEAN CORPUSCULAR HGB CONC 33.5 % (32.0-36.0); MONO % 8.5 % (0.0-8.0); NEUT % 78.5 % (16.0-70.0); PLATELET COUNT 259 TH/MM3 (150-450); RED BLOOD COUNT 2.94 MIL/MM3 (4.50-5.90); RED CELL DISTRIBUTION WIDTH 14.3 % (11.6-17.2); WHITE BLOOD COUNT 11.6 TH/MM3 (4.0-11.0)
[2016-07-28 09:30] LABS: BICARBONATE 28.4 MEQ/L (21.0-32.0)
[2016-07-28] MEDS ORDERED: PHARMACY ORDERED LAB ONE (09:45)
[2016-07-28] MEDS: RIVASTIGMINE TARTRATE 3 MG PO SCH (09:59)
[2016-07-28] MEDS: ASPIRIN 325 MG TAB PO SCH (09:59)
[2016-07-28] MEDS: CHOLECALCIFEROL (VIT D3) 400 UNIT TAB PO SCH (10:01)
[2016-07-28] MEDS: METOPROLOL TARTRATE 25 MG TAB PO SCH (10:01)
[2016-07-28] MEDS: DOCUSATE SODIUM 50 MG/SENNA 8.6 MG TAB PO SCH (10:02)
[2016-07-28] MEDS: FERROUS SULFATE 325 MG (65 MG ELEMENTAL IRON) TAB PO SCH (10:03)
[2016-07-28] MEDS: OXYBUTYNIN CHLORIDE 5 MG TAB PO SCH (10:03)
[2016-07-28] MEDS: DIVALPROEX SODIUM SPRINKLES 125 MG CAP PO SCH (10:03)
[2016-07-28] MEDS: LORazepam 1 MG TAB PO SCH (10:03)
[2016-07-28] MEDS: MULTIVITAMINS/MINERALS THERAPEUTIC TAB PO SCH (10:04)
[2016-07-28] MEDS: FINASTERIDE 5 MG TAB PO SCH (10:22)
--- NOTE | 2016-07-28 10:48 | HHI.PR ---
Subjective Remarks Follow up cellulitis, leukocytosis, hyponatremia. Patient is sleeping, but awakens. His is at bedside and feels that he is doing better today. He has not complained of chest pain or dyspnea. Objective Vitals Vital Signs Date Time Temp Pulse Resp B/P Pulse Ox O2 Delivery O2 Flow Rate FiO2 07/28/16 08:00 98.1 89 21 114/58 94 07/28/16 04:00 99.0 104 22 115/58 94 07/28/16 00:00 99.7 83 24 103/53 95 07/27/16 20:15 Room Air 07/27/16 20:00 99.3 96 32 125/58 95 07/27/16 20:00 94 07/27/16 16:00 99.2 85 18 141/61 96 07/27/16 12:00 97.7 81 18 118/58 96 I/O 07/27/16 07/27/16 07/27/16 07/28/16 07/28/16 07/28/16 07:00 15:00 23:00 07:00 15:00 23:00 Intake Total 200 ml 480 ml Output Total 1000 ml 1300 ml Balance -800 ml -820 ml Intake Oral 200 ml 480 ml Output Urine Total 1000 ml 1300 ml # Voids 2 3 # Bowel Movements 0 2 1 Result Diagram: 07/28/16 0820 07/28/16 0820 Imaging Last Impressions Chest X-Ray 07/23/16 0000 Signed Impressions: Service Date/Time: Saturday, July 23, 2016 09:11 - CONCLUSION: No acute cardiopulmonary disease identified. Benjy Arredondo MD Lower Extremity Ultrasound 07/21/16 0000 Signed Impressions: Service Date/Time: July 18:06 - CONCLUSION: Negative of DVT. Ganesh Dale MD FACR Objective Remarks General: Elderly male in no acute distress. Heart: Regular rate and rhythm. No murmur. Lungs: Mild scattered wheeze. Breathing is nonlabored. Abdomen: Soft, nontender, nondistended. Extremities: Left lower extremity with 2+ edema. Erythema continues to improve. No areas of fluctuance are noted. Psych: Sleeping, but awakens and answers questions. Procedures None Urinary Catheter: No Vascular Central Line Catheter: No A/P Problem List: (1) Left leg cellulitis ICD Code: L03.116 Status: Acute (2) Alzheimer's dementia ICD Code: G30.9 Status: Chronic (3) Hyponatremia ICD Code: E87.1 Status: Acute (4) Coronary artery disease ICD Code: I25.10 Status: Chronic (5) Hypertension ICD Code: I10 Status: Chronic (6) Anxiety and depression ICD Code: F41.9 Status: Chronic (7) Dyspnea ICD Code: R06.00 Status: Acute Assessment and Plan 1. Cellulitis, left lower extremity: Failed outpatient therapy. Patient had been treated with Rocephin and Bactrim at the SNF area and he has had worsening of the cellulitis in the past few days despite antibiotics. Continue vancomycin and Levaquin. There is no drainage available for culture. Ultrasound shows no evidence of DVT. Improving. 2. Dementia: Continue home medications. Patient is confused. 3. Hypertension: Monitor blood pressure. 4. Coronary artery disease: Currently asymptomatic. 5. Hyponatremia: Continue IV fluids. Monitor labs. 6. DVT prophylaxis: Lovenox. 7. Dyspnea: CXR is negative. Concern for possible aspiration. Continue bronchodilators, antibiotics. 8. Sepsis: Secondary to cellulitis, UTI. Continue antibiotics. Appreciate infectious disease recommendations. Blood cultures are negative so far. Urine culture is negative. 9. UTI: Continue antibiotics. Culture is negative. 10. Urinary retention: Appreciate urology recommendations. Albright was placed at [facility] prior to admission. It was changed during this hospitalization. Uncertain if patient has had retention. He has pulled Albright out multiple times, including once reportedly during this hospitalization. Albright removed. Patient voiding. 11. CODE STATUS: DO NOT RESUSCITATE. Discharge Planning Plan for discharge to [facility], possibly tomorrow. Gamal Chu MD July 28, 2016 10:48
[2016-07-28] MEDS ORDERED: LORA-474 PO (10:52)
[2016-07-28] MEDS ORDERED: CLIN150 PO (10:52)
[2016-07-28] MEDS ORDERED: LORA-392 PO ×2 (10:52)
--- NOTE | 2016-07-28 10:53 | HHI.DCPOC ---
Discharge Care Plan Diagnosis: (1) Alzheimer's dementia (2) Anxiety and depression (3) Hypertension (4) Left leg cellulitis (5) Hyponatremia Goals to Promote Your Health * To prevent worsening of your condition and complications * To maintain your health at the optimal level Directions to Meet Your Goals Take your medications as prescribed Follow your dietary instruction Follow activity as directed Keep your appointments as scheduled Take your immunizations and boosters as scheduled If your symptoms worsen call your PCP, if no PCP go to Urgent Care Center or Emergency Room Smoking is Dangerous to Your Health. Avoid second hand smoke Call the 24-hour hour crisis hotline for domestic abuse at Gamal Chu MD July 28, 2016 10:53
[2016-07-28] MEDS ORDERED: PANTOPRAZOLE SOD 40 MG DELAYED RELEASE TAB PO SCH (11:00)
[2016-07-28] MEDS: LEVOFLOXACIN 750 MG TAB PO SCH (11:55)
[2016-07-28 12:00] VITALS: BP 136/68; PULSE 89; RESP 18; TEMP 98; O2SAT 92
[2016-07-28] MEDS ORDERED: LACTGRA PO (13:27)
--- NOTE | 2016-07-28 14:47 | HHI.DS ---
Discharge Summary Admission Date July 21, 2016 at 15:32 Discharge Date: July 28, 2016 Admitting Diagnosis Left lower extremity cellulitis failed outpatient treatment, hyponat (1) Left leg cellulitis ICD Code: L03.116 (2) Alzheimer's dementia ICD Code: G30.9 (3) Hyponatremia ICD Code: E87.1 (4) Coronary artery disease ICD Code: I25.10 (5) Hypertension ICD Code: I10 (6) Anxiety and depression ICD Code: F41.9 (7) Dyspnea ICD Code: R06.00 Procedures None Brief History - From Admission Vanesa is a 75-year-old male who was sent to the emergency department from the [facility] for evaluation of worsening left lower extremity cellulitis over the past few days. He had been placed on Rocephin and Bactrim at the SNF, but there have been no improvement. He has a small wound on the anterior left lower leg with no bleeding or drainage. He has had increasing erythema and swelling of the left leg over the past 5 days. He has dementia and is unable to provide significant history. Further information is gathered from review of electronic medical record, review of the SNF paperwork, discussion with ER physician, and discussion with family at bedside. CBC/BMP: 07/28/16 0820 07/28/16 0820 Significant Findings Laboratory Tests Test 07/26/16 07/27/16 07/27/16 07/28/16 10:01 10:50 12:10 08:20 White Blood Count 17.2 TH/MM3 14.5 TH/MM3 11.6 TH/MM3 (4.0-11.0) (4.0-11.0) (4.0-11.0) Red Blood Count 3.46 MIL/MM3 3.06 MIL/MM3 2.94 MIL/MM3 (4.50-5.90) (4.50-5.90) (4.50-5.90) Hemoglobin 10.2 GM/DL 9.5 GM/DL 8.9 GM/DL (13.0-17.0) (13.0-17.0) (13.0-17.0) Hematocrit 31.7 % 27.6 % 26.6 % (39.0-51.0) (39.0-51.0) (39.0-51.0) Neutrophils (%) (Auto) 88.0 % 82.2 % 78.5 % (16.0-70.0) (16.0-70.0) (16.0-70.0) Lymphocytes (%) (Auto) 5.1 % 7.8 % (9.0-44.0) (9.0-44.0) Neutrophils # (Auto) 15.1 TH/MM3 11.9 TH/MM3 9.1 TH/MM3 (1.8-7.7) (1.8-7.7) (1.8-7.7) Lymphocytes # (Auto) 0.9 TH/MM3 (1.0-4.8) Monocytes # (Auto) 1.0 TH/MM3 1.2 TH/MM3 1.0 TH/MM3 (0-0.9) (0-0.9) (0-0.9) Band Neutrophils % 16 % (0-6) 7 % (0-6) Lymphocytes % 7 % (9-44) 5 % (9-44) Neutrophils # (Manual) 14.8 TH/MM3 12.9 TH/MM3 (1.8-7.7) (1.8-7.7) Metamyelocytes 3 % (0-1) Myelocytes 5 % (0-0) 3 % (0-0) Nucleated Red Blood Cells 1 /100 WBC (0-0) Sodium Level 135 MEQ/L 135 MEQ/L (136-145) (136-145) Random Glucose 110 MG/DL 114 MG/DL (74-106) (74-106) Calcium Level 8.4 MG/DL 8.1 MG/DL 8.0 MG/DL (8.5-10.1) (8.5-10.1) (8.5-10.1) Blood Urea Nitrogen 6 MG/DL (7-18) 5 MG/DL (7-18) Creatinine 0.57 MG/DL 0.54 MG/DL (0.60-1.30) (0.60-1.30) Mean Platelet Volume 6.8 FL 6.8 FL (7.0-11.0) (7.0-11.0) Monocytes (%) (Auto) 8.6 % (0.0-8.0) 8.5 % (0.0-8.0) Neutrophils % (Manual) 78 % (16-70) Imaging Last Impressions Chest X-Ray 07/23/16 0000 Signed Impressions: Service Date/Time: Saturday, July 23, 2016 09:11 - CONCLUSION: No acute cardiopulmonary disease identified. Benjy Arredondo MD Lower Extremity Ultrasound 07/21/16 0000 Signed Impressions: Service Date/Time: July 18:06 - CONCLUSION: Negative of DVT. Ganesh Dale MD FACR PE at Discharge General: Elderly male in no acute distress. Heart: Regular rate and rhythm. No murmur. Lungs: Mild scattered wheeze. Breathing is nonlabored. Abdomen: Soft, nontender, nondistended. Extremities: Left lower extremity with 2+ edema. Erythema continues to improve. No areas of fluctuance are noted. Psych: Sleeping, but awakens and answers questions. Hospital Course The patient was admitted for treatment of cellulitis of left lower extremity, which had failed outpatient therapy. He was started on thick mycin and Zosyn. He developed worsening leukocytosis. Infectious disease was consulted. Antibiotics were adjusted. Patient had significant improvement in the left lower extremity cellulitis. He remained confused throughout the hospitalization. Infectious disease switched him to oral antibiotics and cleared him for discharge. Continue with daily physical therapy. He was felt to be stable for discharge to SNF. Pt Condition on Discharge: Stable Discharge Disposition: Discharge to SNF Discharge Time: > 30 minutes Discharge Instructions DIET: Follow Instructions for: Heart Healthy Diet Speech Therapy-Diet Recommends: Honey Thickened Liquids, Mechanical Soft, Chopped Meat w/Gravy Activities you can perform: See Additionl Instruction Other Activity Instructions: With assistance Follow up Referrals: PCP Follow-up - 1 Week New Medications: Lactobacillus Acidophilus (Lactinex Packet) 1 Gm Pkt 1 GM PO TID Nutritional Supplement #90 Ref 0 PKT Clindamycin (Cleocin) 150 Mg Cap 300 MG PO Q8HR Infection #18 CAP Continued Medications: Acetaminophen (Tylenol) 325 Mg Tab 650 MG PO Q4H PRN PAIN Ref 0 TAB Albuterol Neb (Albuterol Neb) 2.5 Mg/3 Ml Neb 2.5 MG NEB Q6HR PRN CONGESTION #60 Ref 0 NEBULE Aspirin (Aspirin) 325 Mg Tab 325 MG PO DAILY CAD #30 Ref 0 TAB Azelastine Nasal [facility] [place] (Azelastine Nasal [facility]) 0.1% [facility] [place] 2 SPRAY EACH NARE BID PRN CONGESTION #1 Ref 0 BOTTLE Cholecalciferol (Vitamin D-400) 400 Unit Tab 400 UNITS PO DAILY Nutritional Supplement #1 Ref 0 BOTTLE Dextromethorphan HBr-Quinidine (Nuedexta 20-10 mg) 1 Cap Cap 1 CAP PO Q12HR Pseudobulbar Affect #60 Ref 0 CAP Divalproex Sprinkles (Depakote Sprinkles) 125 mg Cap 250 MG PO BID Mood Stabilization #60 Ref 0 CAP Divalproex Sprinkles (Depakote Sprinkles) 125 mg Cap 500 MG PO HS Mood Stabilization #60 Ref 0 CAP Ferrous Sulfate (Ferrous Sulfate) 325 Mg Tab 325 MG PO BID Iron Poor Blood #30 Ref 0 TAB Finasteride (Finasteride) 5 Mg Tab 5 MG PO DAILY Do not crush. Manage Prostate Problems #30 Ref 0 TAB Lorazepam (Ativan) 0.5 Mg Tab 0.5 MG PO Q4H PRN ANXIETY #10 Ref 0 TAB (This prescription has been renewed) Lorazepam (Ativan) 0.5 Mg Tab 0.5 MG PO DAILY IN THE PM Anxiety #5 Ref 0 TAB (This prescription has been renewed) Lorazepam (Ativan) 1 Mg Tab 1 MG PO DAILY ANXIETY/AGITATION #5 Ref 0 TAB (This prescription has been renewed ) Memantine (Namenda) 10 Mg Tab 10 MG PO BID Dementia #30 Ref 0 TAB Metoprolol Tartrate (Metoprolol Tartrate) 25 Mg Tab 25 MG PO BID #60 Ref 0 TAB Multiple Vitamins W/ Minerals (Multiple Vitamin/Minerals) 1 Tab Tab 1 TAB PO DAILY Nutritional Supplement Olanzapine (Olanzapine) 5 Mg Tab 5 MG PO HS Delusional disorder #30 Ref 0 TAB [place]-3 Fatty Acids (Fish Oil) 500 Mg Cap 1000 MG PO DAILY Nutritional Supplement Oxybutynin (Ditropan) 5 Mg Tab 5 MG PO DAILY Urinary Symptom Managemen #60 Ref 0 TAB Quetiapine (Seroquel) 100 Mg Tab 100 MG PO HS Delusional Disorder #30 Ref 0 TAB Quetiapine (Seroquel) 50 Mg Tab 50 MG PO DAILY Delusional Disorder #30 Ref 0 TAB Rivastigmine (Rivastigmine) 3 Mg Cap 3 MG PO BID Dementia #60 Ref 0 CAP Ropinirole (Requip) 0.5 Mg Tab 0.5 MG PO TID Restless leg syndrome #90 Ref 0 TAB Sennosides-Docusate Sodium (Senna S) 8.6-50 Mg Tab 2 TAB PO BID Constipation Sodium Chloride Flush (Normal Saline Flush) 0.9 % Inj 5 ML IV FLUSH Q8HR Administer q-shift and pre/post abt tx Tamsulosin (Flomax) 0.4 Mg Cap 0.4 MG PO HS Manage Prostate Problems #30 Ref 0 CAP Discontinued Medications: Ceftriaxone Inj (Ceftriaxone Inj) 1 Gm Inj 1 GM IV DAILY LLE INFECTION #10 BAG Sulfamethoxazole-Trimethoprim (Bactrim DS) 800-160 Mg Tab 1 TAB PO BID CELLULITIS LLE #10 Ref 0 TAB Gamal Chu MD July 28, 2016 14:47
[2016-07-28 16:00] VITALS: BP 105/60; PULSE 82; RESP 18; TEMP 97; O2SAT 97
[2016-07-28] MEDS: ENOXAPARIN SODIUM 40 MG/0.4 ML SYRINGE SQ SCH (17:12)
[2016-07-28] MEDS: LORazepam 0.5 MG TAB PO SCH (18:31)
== END 2016-07-28 23:13 | DRG 872 ==
LOC: NEPE 13:23 → NEDA 15:32 → N05B 19:19
PROVIDERS: ADMIT Family Medicine; ATTEND Family Medicine
DX: A41.9 Sepsis, unspecified organism (principal); L03.116 Cellulitis of left lower limb; G30.9 Alzheimer's disease, unspecified; F02.81 Dementia in other diseases classified elsewhere, unspecified severity, with behavioral disturbance; N39.0 Urinary tract infection, site not specified; E87.1 Hypo-osmolality and hyponatremia; Z68.41 Body mass index [BMI] 40.0-44.9, adult; I10 Essential (primary) hypertension; F41.9 Anxiety disorder, unspecified; F32.9 Major depressive disorder, single episode, unspecified; I25.10 Atherosclerotic heart disease of native coronary artery without angina pectoris; G25.81 Restless legs syndrome; K59.00 Constipation, unspecified; E78.5 Hyperlipidemia, unspecified; E66.9 Obesity, unspecified; Z66 Do not resuscitate; R33.9 Retention of urine, unspecified; Z95.0 Presence of cardiac pacemaker; Z95.1 Presence of aortocoronary bypass graft
CPT/HCPCS: 36600; 71010; 80048; 80053; 80202; 81001; 82805; 83605; 83735; 85007; 85025; 85027; 87040; 87086; 93971; 94640; 94664; 96365; J1650; J2543; J3370; J7030; J7040; J7050; J7613